=== PATIENT | male | born 1990 | race Caucasian/White ===

== ENCOUNTER 2018-07-04 06:21 | Emergency (ER) | payer SELFPAY ==
[~2018-07-04] VITALS: Ht 180.3 cm; Wt 147.4 kg
[2018-07-04] MEDS ORDERED: cefTRIAXone 1,000 MG/2.86 ml vial (IM ONLY) IM SCH (06:45)
[2018-07-04] MEDS ORDERED: KETOROLAC 60 MG/2 ML VIAL IM ONE (06:45)
[2018-07-04] MEDS ORDERED: LIDOCAINE 1% INJ 20 ML 20 ML VIAL INJ ONE (06:45)
--- NOTE | 2018-07-04 06:50 | ED EENT ---
History of Present Illness General Chief Complaint: Dental Problems/Pain Stated Complaint: ABCESS TOOTH,JAW PAIN, FACIAL PAIN Source: patient Exam Limitations: no limitations History of Present Illness Date Seen by Provider: Jul 04, 2018 Time Seen by Provider: 06:30 Initial Comments The patient is a 28-year-old male presenting with right-sided facial pain. He has several teeth that are bad and one on the right side that is decayed with a large hole in it. He has had worsening pain and swelling to the right side of his face over the last week. He has been trying omkr-wrz-pgijleu medicines but it has not been helping. He has a history of having pain and problems with this tooth. He owes money to the dental clinic so he has been waiting for his insurance to kick in, but it is still another month or 2 before that will happen. He has swelling and erythema to the right side of his face. He has a warm sensation to the right side of his face. He denies any drainage from the tooth. He has had subjective fever and chills but nothing documented. He has increased pain with palpation as well as trying to eat or drink anything. So far nothing has helped make it better. Timing/Duration: gradual Severity: severe Location: facial, dental Allergies and Home Medications Allergies Coded Allergies: [email or web address] (Verified Allergy, Severe, Swelling, 07/04/18) Uncoded Allergies: FLU SHOT (Allergy, Severe, 07/04/18) MUSHROOMS (Allergy, Severe, Swelling, 07/04/18) Home Medications Amoxicillin 500 Mg Tablet, 500 MG PO TID Prescribed by: STEPHAN CRAVEN on 07/04/18 0652 Hydrocodone/Acetaminophen 1 Each Tablet, 1 TAB PO Q6H PRN for severe pain Prescribed by: STEPHAN CRAVEN on 07/04/18 0652 Ibuprofen 800 Mg Tablet, 800 MG PO Q8H PRN for PAIN-MILD Prescribed by: STEPHAN CRAVEN on 07/04/18 0653 Patient Home Medication List Home Medication List Reviewed: Yes Review of Systems Review of Systems Constitutional: chills, fever (subjective) Eyes: Denies Blurred Vision Mouth: pain, swelling Throat: other (lymphadenopathy on the right side of his neck and throat) Respiratory: No cough Skin: change in color (redness to the right side of his face) Past Ocmykxt-Wkjmij-Utpfno Hx Patient Social History Recent Foreign Travel: No Contact w/Someone Who Travel: No Past Medical History Cardiac: Yes Hypertension Physical Exam Vital Signs Vital Signs - First Documented 07/04/18 06:32 Temp 97.9 Pulse 68 Resp 18 B/P (MAP) 190/91 (124) Pulse Ox 96 O2 Delivery Room Air Height, Weight, BMI Height: '" Weight: lbs. oz. kg; BMI Method: General Appearance: moderate distress Eyes: bilateral eye PERRL, bilateral eye EOMI Nose: normal inspection Mouth/Throat: dental tenderness (several cavities and fillings in teeth. Widespread dental decay) Neck: full range of motion, lymphadenopathy (R), lymphadenopathy (L) Cardiovascular: normal peripheral pulses, regular rate, rhythm Respiratory: chest non-tender, lungs clear, normal breath sounds, no respiratory distress Neurologic/Psychiatric: alert, oriented x 3 Progress/Results/Core Measures Results/Orders My Orders Orders - STEPHAN CRAVEN MD Ketorolac Injection (Toradol Injection) (07/04/18 06:45) Ceftriaxone For Im Use (Rocephin For Im (07/04/18 06:45) Lidocaine 1% Inj 20 Ml (Xylocaine 1% Inj (07/04/18 06:45) Vital Signs/I&O 07/04/18 06:32 Temp 97.9 Pulse 68 Resp 18 B/P (MAP) 190/91 (124) Pulse Ox 96 O2 Delivery Room Air Progress Progress Note : Time: 06:40 Progress Note Will treat with Rocephin IM shot as well as Toradol for pain. Started him on amoxicillin for antibiotic. Prescriptions for a few days of hydrocodone as well as ibuprofen. Encouraged to follow-up with the dentist as soon as possible for definitive care. Departure Impression Primary Impression: Dental abscess Additional Impressions: Pain due to dental caries Chronic hypertension Disposition: HOME, SELF-CARE Condition: Stable Departure-Patient Inst. Referrals: NO,LOCAL PHYSICIAN (PCP) Primary Care Physician Patient Instructions: Dental Pain (DC), Tooth Abscess (DC), Tooth Decay, Adult (DC) Add. Discharge Instructions: Follow up with your primary provider about your blood pressure. It should come down as your pain and infection from your tooth improves Check with clinic and dentist as soon as possible for definitive care of your teeth. All discharge instructions reviewed with patient and/or family. Voiced understanding. Scripts Ibuprofen (Ibuprofen) 800 Mg Tablet 800 MG PO Q8H PRN for PAIN-MILD for 10 Days, #30 TAB Prov: STEPHAN CRAVEN MD 07/04/18 Hydrocodone/Acetaminophen (Reyno 5-325 Tablet) 1 Each Tablet 1 TAB PO Q6H PRN for severe pain MDD 10 for 3 Days, #12 TAB 0 Refills Prov: STEPHAN CRAVEN MD 07/04/18 Amoxicillin (Amoxicillin) 500 Mg Tablet 500 MG PO TID for dental caries/infection for 10 Days, TAB Prov: STEPHAN CRAVEN MD 07/04/18 STEPHAN CRAVEN MD Jul 04, 2018 06:50
[2018-07-04] MEDS ORDERED: AMOX500T2 PO (06:52)
[2018-07-04] MEDS ORDERED: HYDR-4226 PO (06:52)
[2018-07-04] MEDS ORDERED: IBUP-1780 PO (06:53)
--- NOTE | 2018-07-04 07:00 | NUR ---
Report from Roberta COX.
[2018-07-04 07:05] VITALS: BP 190/99
--- NOTE | 2018-07-04 07:05 | NUR ---
Follow up recommended soon for elevated BP.
--- NOTE | 2018-07-04 07:05 | NUR ---
Pt was instructed to establish/follow up with PCP.
--- NOTE | 2018-07-04 07:05 | NUR ---
Pt discharged to home at this time. Pt verbalizes understanding of home instructions and rec'd 3 Rx's
--- OUTSIDE RECORDS SUMMARY | 2018-07-05 10:39 | XMS REPORT ---
Author Author LUIS SANTIAGO Organization [facility] Address [address] [place] [address] Care Team Providers Care Customer Liaison Name Role Phone LUIS SANTIAGO Unavailable PROBLEMS Type Condition ICD9-CM Code [id number] Code Onset Dates Condition Status SNOMED Code Problem Primary insomnia F51.01 Active 7992495 Problem Other chronic pain G89.29 Active 68975857 Problem Body mass index (BMI) of 40.0-44.9 in adult Z68.41 Active 399829502 Problem Essential hypertension I10 Active 18281748 Problem Dental caries K02.9 Active 93955700 Problem Hypertriglyceridemia E78.1 Active 096890602 Problem Low serum HDL R74.8 Active 416764266 Problem Bipolar affective disorder, current episode mixed, current episode severity unspecified F31.60 Active 312648636 Problem Generalized anxiety disorder F41.1 Active 39239057 Problem Methamphetamine use disorder, moderate, 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 Active 66290530 Problem Bipolar affective disorder, currently depressed, moderate F31.32 Active 512293188 ALLERGIES No Known Allergies ENCOUNTERS Encounter Location Date Diagnosis [facility] [id number] [place] [address] Jan, Essential hypertension I10 ; Primary insomnia F51.01 ; Generalized anxiety disorder F41.1 ; Bipolar affective disorder, current episode mixed, current episode severity unspecified F31.60 ; Diarrhea, unspecified type R19.7 ; Pain in left knee M25.562 ; Folliculitis L73.9 and Body mass index (BMI) of 40.0-44.9 in adult Z68.41 [facility] [id number] [address] Nov, [facility] [address] [facility] [id number] [address] Nov, Essential hypertension I10 ; Generalized anxiety disorder F41.1 ; BMI 40.0-44.9, adult Z68.41 ; Bipolar affective disorder, currently depressed, moderate F31.32 and Low serum HDL R74.8 [place] [id number] [place] [address] September, Essential hypertension I10 ; Primary insomnia F51.01 ; Hypertriglyceridemia E78.1 ; Bipolar affective disorder, currently depressed, moderate F31.32 ; Pain in left knee M25.562 ; Other chronic pain G89.29 ; Acute pain of left shoulder M25.512 ; Body mass index (BMI) of 40.0-44.9 in adult Z68.41 ; Morbid (severe) obesity due to excess calories E66.01 and Dental caries K02.[address] [address] September, Bipolar affective disorder, currently depressed, moderate F31.32 ; Methamphetamine use disorder, moderate, 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 and BMI 40.0-44.9, adult Z68.[address] [address] Aug, Bipolar affective disorder, current episode mixed, current episode severity unspecified F31.60 and Generalized anxiety disorder F41.[address] [address] Aug, Essential hypertension I10 ; Hypertriglyceridemia E78.1 ; Anxiety F41.9 and Screen for STD (sexually transmitted disease) Z11.[address] [address] Jan, Cellulitis of groin L03.[address] [address] September, [place] [address] [address] Aug, [address] [address] Aug, Dental examination Z01.20 [facility] [address] [place] [address] Jul, [place] [id number] [place] [address] Jul, Essential hypertension I10 ; Primary insomnia F51.01 and Hypertriglyceridemia E78.1 [place] [address] [address] May, [facility] [id number] [place] [phone] May, Dental examination Z01.20 [place] [address] [address] May, [facility] [id number] [place] [phone] May, Encounter for dental examination Z01.20 [place] [id number] [place] [address] May, Encounter for routine adult health examination with abnormal findings Z00.01 ; Body mass index (BMI) of 45.0-49.9 in adult Z68.42 ; Morbid (severe) obesity due to excess calories E66.01 ; High-risk sexual behavior Z72.51 ; Essential hypertension I10 ; Primary insomnia F51.01 ; Dental caries K02.9 ; Decreased hearing of right ear H91.91 and Tonsillar hypertrophy J35.1 IMMUNIZATIONS No Known Immunizations SOCIAL HISTORY Never Assessed REASON FOR VISIT Hypertension Pt in for fu on HTN and knee pain, states his knee is still bothering him despite the knee injection HAIR Maldonado PLAN OF CARE Activity Details Follow Up 3 Months, prn Reason:CHM/HTN VITAL SIGNS Height 71 in 2018-01-08 Weight 316.5 lbs 2018-01-08 Temperature 98.2 degrees Fahrenheit 2018-01-08 Heart Rate 80 bpm 2018-01-08 Respiratory Rate 20 2018-01-08 BMI 44.14 kg/m2 2018-01-08 Blood pressure systolic 126 mmHg 2018-01-08 Blood pressure diastolic 64 mmHg 2018-01-08 MEDICATIONS Medication Instructions Dosage Frequency Start Date End Date Duration Status Pravastatin Sodium 20 mg Orally Once a day at hs 1 tablet May, Active Restoril 15 mg Orally Once a day 1 capsule at bedtime as needed 24h Jan 28 days Active Bactrim DS 800-160 MG Orally Twice a day 1 tablet 12h Jan,Jan 10 day(s) Active ibuprofen 1 tab Active Tegretol 200 mg Orally Twice a day 1 tablet 12September, Active Zestoretic 20-25 MG Orally Once a day 1 tablet 24h Jul, Active tylenol Active HydrOXYzine HCl 50 mg Orally every 8 hrs PRN 1 tablet three times per day Nov, 30 days Active RESULTS No Results PROCEDURES No Known procedures INSTRUCTIONS MEDICATIONS ADMINISTERED No Known Medications MEDICAL (GENERAL) HISTORY Type Description Date Medical History Hypertension Medical History Panic Attacks (Hx) Medical History Bipolar (unmedicated) Medical History Asthma Medical History hypercholesterolemia Medical History Tonsillar hypertrophy Medical History Inner ear dysfunction, bilateral Medical History Conductive hearing loss of both ears Surgical History Benign Tumor removed from bottom of abdomen Hospitalization History Bad reaction to flu vaccine- states had spells of blacking out and spent 6 days in the hospital 2008 Hospitalization History Mental hospital stays x2 2008, 2012
--- OUTSIDE RECORDS SUMMARY | 2018-07-05 10:39 | XMS REPORT ---
Author Author CAPO LILLY [facility] Address [address] [place] [address] Care Team Providers Care Engineer Technician Name Role Phone CAPO LILLY Unavailable PROBLEMS Type Condition ICD9-CM Code CYR26-CO Code Onset Dates Condition Status SNOMED Code Problem Primary insomnia F51.01 Active 0469962 Problem Other chronic pain G89.29 Active 52678904 Problem Body mass index (BMI) of 40.0-44.9 in adult Z68.41 Active 077061991 Problem Essential hypertension I10 Active 69995482 Problem Dental caries K02.9 Active 94150457 Problem Hypertriglyceridemia E78.1 Active 296640260 Problem Low serum HDL R74.8 Active 615877881 Problem Bipolar affective disorder, current episode mixed, current episode severity unspecified F31.60 Active 908666318 Problem Generalized anxiety disorder F41.1 Active 14798655 Problem Methamphetamine use disorder, moderate, 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 Active 34753208 Problem Bipolar affective disorder, currently depressed, moderate F31.32 Active 075704807 ALLERGIES No Known Allergies ENCOUNTERS Encounter Location Date Diagnosis [place] [address] [place] [address] Feb, [facility] [place] [id number] [place] [address] Feb, Acute nasopharyngitis (common cold) J00 ; Bronchiolitis J21.9 ; Non-intractable vomiting with nausea, unspecified vomiting type R11.2 and BMI 40.0-44.9, adult Z68.41 [facility] [place] [address] [place] [address] Jan, Essential hypertension I10 ; Primary insomnia F51.01 ; Generalized anxiety disorder F41.1 ; Bipolar affective disorder, current episode mixed, current episode severity unspecified F31.60 ; Diarrhea, unspecified type R19.7 ; Pain in left knee M25.562 ; Folliculitis L73.9 and Body mass index (BMI) of 40.0-44.9 in adult Z68.41 [place] [address] [address] Nov, [place] [id number] [place] [address] Nov, Essential hypertension I10 ; Generalized anxiety disorder F41.1 ; BMI 40.0-44.9, adult Z68.41 ; Bipolar affective disorder, currently depressed, moderate F31.32 and Low serum HDL R74.8 [place] [id number] [place] [address] September, Essential hypertension I10 ; Primary insomnia F51.01 ; Hypertriglyceridemia E78.1 ; Bipolar affective disorder, currently depressed, moderate F31.32 ; Pain in left knee M25.562 ; Other chronic pain G89.29 ; Acute pain of left shoulder M25.512 ; Body mass index (BMI) of 40.0-44.9 in adult Z68.41 ; Morbid (severe) obesity due to excess calories E66.01 and Dental caries K02.9 [place] [id number] [place] [address] September, Bipolar affective disorder, currently depressed, moderate F31.32 ; Methamphetamine use disorder, moderate, 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 and BMI 40.0-44.9, adult Z68.[address] [place] [address] Aug, Bipolar affective disorder, current episode mixed, current episode severity unspecified F31.60 and Generalized anxiety disorder F41.1 [place] [address] [id number] [place] [address] Aug, Essential hypertension I10 ; Hypertriglyceridemia E78.1 ; Anxiety F41.9 and Screen for STD (sexually transmitted disease) Z11.[address] [place], [place] [address] 07 Jan, 2017 Cellulitis of groin L03.314 [place] [id number] [place] [phone] September, [facility] [place] [id number] [place] [id number] Aug, [place] [id number] [place] [address] Aug, Dental examination Z01.20 [place] [id number] [place] [address] Jul, [place] [id number] [place] [phone] Jul, Essential hypertension I10 ; Primary insomnia F51.01 and Hypertriglyceridemia E78.1 [place] [id number] [place] [address] May, [facility] [id number] [place] [phone] May, Dental examination Z01.20 [place] [id number] [place] [phone] May, [facility] [id number] [place] [phone] May, Encounter for dental examination Z01.20 [place] [address] [place] [phone] May, Encounter for routine adult health examination [...] SOCIAL HISTORY Never Assessed REASON FOR VISIT Cough/Congestion slowly getting worse. Tried OTC medicene and not helping Starla ARNDT, Was sick last week with vomitting/diarreha and since then can't eat anything without vomitting Starla ARNDT, Would like to see about increasing antideppresant dealing w/ a in family.Starla ARNDT, Sleeping medicene never got sent to [facility] in [place] would like it still Starla ARNDT PLAN OF CARE Activity Details Follow Up 03/03 w/ Chaitanya Lilly Reason:establish care VITAL SIGNS Height 71 in 2018-02-11 Weight 312.2 lbs 2018-02-11 Temperature 98.2 degrees Fahrenheit 2018-02-11 Heart Rate 70 bpm 2018-02-11 Respiratory Rate 20 2018-02-11 Oximetry on room air:96 % 2018-02-11 BMI 43.54 kg/m2 2018-02-11 Blood pressure systolic 122 mmHg 2018-02-11 Blood pressure diastolic 88 mmHg 2018-02-11 MEDICATIONS Medication Instructions Dosage Frequency Start Date End Date Duration Status Pravastatin Sodium 20 mg Orally Once a day at hs 1 tablet May, Active HydrOXYzine HCl 50 mg Orally every 8 hrs PRN 1 tablet three times per day Nov, 30 days Active Zestoretic 20-25 MG Orally Once a day 1 tablet 24h Jul, Active PredniSONE 20 mg Orally Once a day 2 tablets 24h Feb, Feb, 5 days Active Tegretol 200 mg Orally Twice a day 1 tablet 12h September, Active Restoril 15 mg Orally Once a day 1 capsule at bedtime as needed 24h Jan 28 days Active tylenol Active ibuprofen 1 tab Active Ondansetron HCl 8 MG Orally Twice a day 1 tablet 12h Feb, 5 days Active RESULTS No Results PROCEDURES No [...] History Mental hospital stays x2 2008, 2012 Hospitalization History Rahel Hernadez 2017
--- OUTSIDE RECORDS SUMMARY | 2018-07-05 10:39 | XMS REPORT ---
Author Author LUIS Ko Organization [facility] Address [address] [place] [address] Care Team Providers Care Hospital Housekeeper Name Role Phone LUIS Ko Unavailable PROBLEMS Type Condition ICD9-CM Code TZH94-GK Code Onset Dates Condition Status SNOMED Code Problem Primary insomnia F51.01 Active 8092806 Problem Other chronic pain G89.29 Active 10594376 Problem Body mass index (BMI) of 40.0-44.9 in adult Z68.41 Active 530230163 Problem Essential hypertension I10 Active 91720781 Problem Dental caries K02.9 Active 97805114 Problem Hypertriglyceridemia E78.1 Active 589228195 Problem Low serum HDL R74.8 Active 925455459 Problem Bipolar affective disorder, current episode mixed, current episode severity unspecified F31.60 Active 261025921 Problem Generalized anxiety disorder F41.1 Active 28676488 Problem Methamphetamine use disorder, moderate, 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 Active 15141203 Problem Bipolar affective disorder, currently depressed, moderate F31.32 Active 688586197 ALLERGIES No Information ENCOUNTERS Encounter Location Date Diagnosis [facility] [id number] [place] [address] Feb, Acute nasopharyngitis (common cold) J00 ; Bronchiolitis J21.9 ; Non-intractable vomiting with nausea, unspecified vomiting type R11.2 and BMI 40.0-44.9, adult Z68.41 [facility] [id number] [place] [address] 06 Jan, 2018 Essential hypertension I10 ; Primary insomnia F51.01 ; Generalized anxiety disorder F41.1 ; Bipolar affective disorder, current episode mixed, current episode severity unspecified F31.60 ; Diarrhea, unspecified type R19.7 ; Pain in left knee M25.562 ; Folliculitis L73.9 and Body mass index (BMI) of 40.0-44.9 in adult Z68.41 [place] [address] [address] Nov, [place] [address] [place] [address] Nov, Essential hypertension I10 ; Generalized anxiety disorder F41.1 ; BMI 40.0-44.9, adult Z68.41 ; Bipolar affective disorder, currently depressed, moderate F31.32 and Low serum HDL R74.8 [place] [address] [place] [address] September, Essential hypertension I10 ; Primary insomnia F51.01 ; Hypertriglyceridemia E78.1 ; Bipolar affective disorder, currently depressed, moderate F31.32 ; Pain in left knee M25.562 ; Other chronic pain G89.29 ; Acute pain of left shoulder M25.512 ; Body mass index (BMI) of 40.0-44.9 in adult Z68.41 ; Morbid (severe) obesity due to excess calories E66.01 and Dental caries K02.9 [place] [address] [place] [address]- [address] September, Bipolar affective disorder, currently depressed, moderate F31.32 ; Methamphetamine use disorder, moderate, 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 and BMI 40.0-44.9, adult Z68.41 [place] [address] [place] [address] 729[address]- [address] Aug, Bipolar affective disorder, current episode mixed, current episode severity unspecified F31.60 and Generalized anxiety disorder F41.1 [place] [id number] [place] [address]- [address] Aug, Essential hypertension I10 ; Hypertriglyceridemia E78.1 ; Anxiety F41.9 and Screen for STD (sexually transmitted disease) Z11.3 [place] [address] [place] [address]- [address] 07 Jan, 2017 Cellulitis of groin L03.314 [place] [address] [address] September, [facility] [id number] [place] [address] Aug, [facility] [id number] [place] [address] 8[address]- [address]73 Aug, Dental examination Z01.20 [facility] [id number] [place] [address] 34[address]- [address] Jul, [facility] [id number] [place] [address] 71351- 1360 Jul, Essential hypertension I10 ; Primary insomnia F51.01 and Hypertriglyceridemia E78.1 [place] [id number] [place] [address] 39[address] May, [facility] [id number] [place] [phone] May, Dental examination Z01.20 [facility] [id number] [place] [address] 66345[address] May, [facility] [id number] [place] [address] [phone] May, Encounter for dental examination Z01.20 [place] [id number] [place] [address]- [address] May, Encounter for routine adult health examination [...] SOCIAL HISTORY Never Assessed REASON FOR VISIT Decreased Hearing - Left ear PLAN OF CARE VITAL SIGNS MEDICATIONS No Known Medications RESULTS No Results PROCEDURES No Known procedures [...] x2 2008, 2012 Hospitalization History Rahel Hernadez 2018
--- OUTSIDE RECORDS SUMMARY | 2018-07-05 10:40 | XMS REPORT ---
Author Author LUIS SANTIAGO Organization [facility] [place] Address [address] [place] [address] Care Team Providers Care Holder Pile Driving Name Role Phone SANTIAGOLUIS Kirkpatrick Unavailable PROBLEMS Type Condition ICD9-CM Code WZL32-SS Code Onset Dates Condition Status SNOMED Code Problem Essential hypertension I10 Active 44043259 Problem Body mass index (BMI) of 40.0-44.9 in adult Z68.41 Active 104544374 Problem Dental caries K02.9 Active 70654190 Problem Primary insomnia F51.01 Active 4567844 Problem Low serum HDL R74.8 Active 853217005 Problem Methamphetamine use disorder, moderate, 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 Active 69256670 Problem Bipolar affective disorder, current episode mixed, current episode severity unspecified F31.60 Active 199869945 Problem Other chronic pain G89.29 Active 53083505 Problem Bipolar affective disorder, currently depressed, moderate F31.32 Active 034425731 Problem Generalized anxiety disorder F41.1 Active 90306730 ALLERGIES No Known Allergies ENCOUNTERS Encounter Location Date Diagnosis [facility] [place] [id number] [address] Jan, [facility] [place] [id number] [place] [address] Nov, [facility] [place] [id number] [place] [address] Nov, Essential hypertension I10 ; Generalized anxiety disorder F41.1 ; BMI 40.0-44.9, adult Z68.41 ; Bipolar affective disorder, currently depressed, moderate F31.32 and Low serum HDL R74.8 [facility] [place] [id number] [address] September, Essential hypertension I10 ; Primary insomnia F51.01 ; Hypertriglyceridemia E78.1 ; Bipolar affective disorder, currently depressed, moderate F31.32 ; Pain in left knee M25.562 ; Other chronic pain G89.29 ; Acute pain of left shoulder M25.512 ; Body mass index (BMI) of 40.0-44.9 in adult Z68.41 ; Morbid (severe) obesity due to excess calories E66.01 and Dental caries K02.9 [place] [address] [address] September, Bipolar affective disorder, currently depressed, moderate F31.32 ; Methamphetamine use disorder, moderate, 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 and BMI 40.0-44.9, adult Z68.41 [place] [address] [address] 24 Aug, 2017 Bipolar affective disorder, current episode mixed, current episode severity unspecified F31.60 and Generalized anxiety disorder F41.1 [place] [address] [address] Aug, Essential hypertension I10 ; Hypertriglyceridemia E78.1 ; Anxiety F41.9 and Screen for STD (sexually transmitted disease) Z11.3 [place] [address] [address] 07 Jan, 2017 Cellulitis of groin L03.314 [place] [address] [address] September, [place] [address] [address] Aug, [place] [address] [address] Aug, Dental examination Z01.20 [place] [address] [address] Jul, [place] [address] [address] Jul, Essential hypertension I10 ; Primary insomnia F51.01 and Hypertriglyceridemia E78.1 [facility] [place] [address] [facility] [id number] [address] May, [facility] [id number] [id number] May, Dental examination Z01.20 [facility] [place] [address] [address] May, [facility] [id number] [id number] May, Encounter for dental examination Z01.20 [facility] [place] [id number] [address] May, Encounter for routine adult health examination [...] SOCIAL HISTORY Never Assessed REASON FOR VISIT [id number], -Having right ankle pain that radiates up right calf for few weeks, -Requesting HIV test PLAN OF CARE Activity Details Follow Up 3 Months, prn Reason:CHM/HTN VITAL SIGNS Height 71 in 2017-08-08 Weight 294.1 lbs 2017-08-08 Temperature 98.6 degrees Fahrenheit 2017-08-08 Heart Rate 90 bpm 2017-08-08 Respiratory Rate 20 2017-08-08 BMI 41.01 kg/m2 2017-08-08 Blood pressure systolic 164 mmHg 2017-08-08 Blood pressure diastolic 90 mmHg 2017-08-08 MEDICATIONS Medication Instructions Dosage Frequency Start Date End Date Duration Status Clonidine HCl 0.1 MG Orally twice a day 1 tablet 12h Aug, 30 day(s) Active Zestoretic 20-25 MG Orally Once a day 1 tablet 24h Jul, 90 days Active tylenol Active Pravastatin Sodium 20 mg Orally Once a day at hs 1 tablet May, 90 days Not-Taking RESULTS No Results PROCEDURES Procedure Date Ordered Result Body Site COMPLETE CBC W/AUTO DIFF WBC August 08, 2017 COMPREHEN METABOLIC PANEL August 08, 2017 LIPID PANEL August 08, 2017 ASSAY THYROID STIM HORMONE August 08, 2017 VENIPUNCT, ROUTINE* August 08, 2017 No Charge August 08, 2017 INSTRUCTIONS MEDICATIONS ADMINISTERED No Known Medications MEDICAL [...]
--- OUTSIDE RECORDS SUMMARY | 2018-07-05 10:40 | XMS REPORT ---
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 Active 59912168 Problem Bipolar affective disorder, current episode mixed, current episode severity unspecified F31.60 Active 745673922 Problem Other chronic pain G89.29 Active 80074262 Problem Bipolar affective disorder, currently depressed, moderate F31.32 Active 501918706 Problem Generalized anxiety disorder F41.1 Active 40441847 ALLERGIES No Information ENCOUNTERS Encounter Location Date Diagnosis [place] [id number] [address] Jan, [facility] [address] [address] Nov, [facility] [address] [place] [address] Nov, Essential hypertension I10 ; Generalized anxiety disorder F41.1 ; BMI 40.0-44.9, adult Z68.41 ; Bipolar affective disorder, currently depressed, moderate F31.32 and Low serum HDL R74.8 [place] [id number] [address] September, Essential hypertension I10 ; Primary insomnia F51.01 ; Hypertriglyceridemia E78.1 ; Bipolar affective disorder, currently depressed, moderate F31.32 ; Pain in left knee M25.562 ; Other chronic pain G89.29 ; Acute pain of left shoulder M25.512 ; Body mass index (BMI) of 40.0-44.9 in adult Z68.41 ; Morbid (severe) obesity due to excess calories E66.01 and Dental caries K02.[address] [address] September, Bipolar affective disorder, currently depressed, moderate F31.32 ; Methamphetamine use disorder, moderate, 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 and BMI 40.0-44.9, adult Z68.[address] [address] 24 Aug, 2017 Bipolar affective disorder, current episode mixed, current episode severity unspecified F31.60 and Generalized anxiety disorder F41.[address] [address] Aug, Essential hypertension I10 ; Hypertriglyceridemia E78.1 ; Anxiety F41.9 and Screen for STD (sexually transmitted disease) Z11.3 [place] [address] [address] 07 Jan, 2017 Cellulitis of groin L03.314 [place] [address] [address] September, [place] [address] [address] Aug, [place] [address] [address] Aug, Dental examination Z01.[address] [address] Jul, [place] [address] [address] Jul, Essential hypertension I10 ; Primary insomnia F51.01 and Hypertriglyceridemia E78.1 [facility] [address] [facility] [id number] [address] May, [facility] [address] [id number] May, Dental examination Z01.20 [facility] [id number] [address] May, [facility] [id number] [id number] May, Encounter for dental examination Z01.20 [facility] [address] [address] May, Encounter for routine adult health examination [...] SOCIAL HISTORY Never Assessed REASON FOR VISIT intake PLAN OF CARE Activity Details Follow Up prn Reason: F/U VITAL SIGNS MEDICATIONS Medication Instructions Dosage Frequency Start Date End Date Duration Status Clonidine HCl 0.1 MG Orally twice a day 1 tablet 12h Aug, 30 day(s) Active tylenol Active Zestoretic 20-25 MG Orally Once a day 1 tablet 24h Jul, 90 days Active Pravastatin Sodium 20 mg Orally Once a day at hs 1 tablet May, 90 days Active RESULTS No Results PROCEDURES Procedure Date Ordered Result Body Site Psych diagnostic evaluation, established patient August 26, 2017 INSTRUCTIONS MEDICATIONS ADMINISTERED No Known Medications [...]
--- OUTSIDE RECORDS SUMMARY | 2018-07-05 10:40 | XMS REPORT ---
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 Active 01516184 Problem Bipolar affective disorder, current episode mixed, current episode severity unspecified F31.60 Active 228010309 Problem Other chronic pain G89.29 Active 63959115 Problem Bipolar affective disorder, currently depressed, moderate F31.32 Active 723963689 Problem Generalized anxiety disorder F41.1 Active 45148847 ALLERGIES No Known Allergies ENCOUNTERS Encounter Location Date Diagnosis [facility] [id number] [address] Jan, [facility] [address] [place] [address] Nov, [facility] [address] [place] [address] Nov, Essential hypertension I10 ; Generalized anxiety disorder F41.1 ; BMI 40.0-44.9, adult Z68.41 ; Bipolar affective disorder, currently depressed, moderate F31.32 and Low serum HDL R74.8 [facility] [id number] [address] September, Essential hypertension I10 ; Primary insomnia F51.01 ; Hypertriglyceridemia E78.1 ; Bipolar affective disorder, currently depressed, moderate F31.32 ; Pain in left knee M25.562 ; Other chronic pain G89.29 ; Acute pain of left shoulder M25.512 ; Body mass index (BMI) of 40.0-44.9 in adult Z68.41 ; Morbid (severe) obesity due to excess calories E66.01 and Dental caries K02.9 [place] [address] [address] September, Bipolar affective disorder, currently depressed, moderate F31.32 ; Methamphetamine use disorder, moderate, 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 and BMI 40.0-44.9, adult Z68.41 [place] [address] [address] 24 Aug, 2017 Bipolar affective disorder, current episode mixed, current episode severity unspecified F31.60 and Generalized anxiety disorder F41.1 [place] [address] [address] Aug, Essential hypertension I10 ; Hypertriglyceridemia E78.1 ; Anxiety F41.9 and Screen for STD (sexually transmitted disease) Z11.3 [place] [address] [address] 07 Jan, 2017 Cellulitis of groin L03.314 [place] [address] [address] September, [place] [address] [address] Aug, [place] [address] [address] Aug, Dental examination Z01.20 [place] [address] [address] Jul, [place] [address] [address] Jul, Essential hypertension I10 ; Primary insomnia F51.01 and Hypertriglyceridemia E78.1 [facility] [address] [facility] [id number] [address] May, [facility] [id number] [id number] May, Dental examination Z01.20 [facility] [address] [address] May, [facility] [id number] [id number] May, Encounter for dental examination Z01.20 [facility] [id number] [address] May, Encounter for routine adult health examination [...] SOCIAL HISTORY Never Assessed REASON FOR VISIT Blood pressure-Ronald Pt wanted to talk about something to help him sleep and help with pain in his shoulder and knee PLAN OF CARE Activity Details Follow Up 3 Months, prn Reason:CHM/HTN Future/Pending Procedure JOINT INJECTION-LARGE JOINT VITAL SIGNS Height 71 in 2017-09-25 Weight 297.3 lbs 2017-09-25 Temperature 98.4 degrees Fahrenheit 2017-09-25 Heart Rate 80 bpm 2017-09-25 Respiratory Rate 20 2017-09-25 BMI 41.46 kg/m2 2017-09-25 Blood pressure systolic 120 mmHg 2017-09-25 Blood pressure diastolic 74 mmHg 2017-09-25 MEDICATIONS Medication Instructions Dosage Frequency Start Date End Date Duration Status Clonidine HCl 0.2 MG Orally Twice a day 1 tablet 12h Aug, 90 days Active Zestoretic 20-25 MG Orally Once a day 1 tablet 24h Jul, 90 days Active tylenol Active Pravastatin Sodium 20 mg Orally Once a day at hs 1 tablet May, 90 days Active Eszopiclone 2 MG Orally Once a day 1 tablet immediately before bedtime 24h September, 30 days Active Tegretol 200 mg Orally Twice a day 1 tablet 12h September, 90 days Active RESULTS No Results PROCEDURES Procedure Date Ordered Result Body Site DRAIN/INJECT, JOINT/BURSA September 25, 2017 INSTRUCTIONS MEDICATIONS ADMINISTERED No Known Medications [...]
--- OUTSIDE RECORDS SUMMARY | 2018-07-05 10:40 | XMS REPORT ---
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 Active 440908314 Problem Conductive hearing loss of both ears H90.0 Active 371369517 Problem Primary insomnia F51.01 Active 8663730 Problem Hypertriglyceridemia E78.1 Active 684203113 Problem Dental caries K02.9 Active 09563327 Problem Decreased hearing of right ear H91.91 Active 591288414 Problem Encounter for routine adult health examination with abnormal findings Z00.01 Active 483207891 Problem Essential hypertension I10 Active 95946206 Problem Tonsillar hypertrophy J35.1 Active 30525242 ALLERGIES No Known Allergies SOCIAL HISTORY Never Assessed PLAN OF CARE Activity Details Follow Up prn Reason:MARLENY VITAL SIGNS MEDICATIONS Medication Instructions Dosage Frequency Start Date End Date Duration Status Lisinopril-Hydrochlorothiazide 10-12.5 MG Orally Once a day 1 tablet 24h May, 90 days Active Lunesta 2 MG Orally Once a day 1 tablet immediately before bedtime 24h May, 30 days Active Hydrochlorothiazide 25 MG Orally Once a day 1 tablet 24h Active RESULTS No Results PROCEDURES Procedure Date Ordered Result Body Site INTRAORL-PERIAPICAL 1 FILM 94002 May 23, 2016 INTRAORL-PERIAPICAL EA ADD FILM May 23, 2016 INTRAORL-PERIAPICAL EA ADD FILM May 23, 2016 INTRAORL-PERIAPICAL EA ADD FILM May 23, 2016 PANORAMIC FILM SEE ALSO CODE 04123 May 23, 2016 BITEWINGS - FOUR FILMS May 23, 2016 IMMUNIZATIONS No Known Immunizations MEDICAL (GENERAL) HISTORY Type Description Date Medical History Hypertension Medical History Panic Attacks (Hx) Medical History Bipolar (unmedicated) Medical History Asthma Surgical History Benign Tumor removed from bottom of abdomen Hospitalization History Bad reaction to flu vaccine- states had spells of blacking out and spent 6 days in the hospital 2008 Hospitalization History Mental hospital stays x2
--- OUTSIDE RECORDS SUMMARY | 2018-07-05 10:40 | XMS REPORT ---
Author Author KRISTY MONTEMAYOR Organization [facility] Address [address] [place] [address] Care Team Providers Care Inside Account Representative Name Role Phone ALBINA KRISTY Unavailable PROBLEMS Type Condition ICD9-CM Code CLA46-ZZ Code Onset Dates Condition Status SNOMED Code Problem Essential hypertension I10 Active 15789603 Problem Body mass index (BMI) of 40.0-44.9 in adult Z68.41 Active 769747592 Problem Dental caries K02.9 Active 74816516 Problem Primary insomnia F51.01 Active 0449779 Problem Low serum HDL R74.8 Active 422725913 Problem Methamphetamine use disorder, moderate, 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 Active 42140392 Problem Bipolar affective disorder, current episode mixed, current episode severity unspecified F31.60 Active 084536577 Problem Other chronic pain G89.29 Active 03777823 Problem Bipolar affective disorder, currently depressed, moderate F31.32 Active 728848747 Problem Generalized anxiety disorder F41.1 Active 83129270 ALLERGIES No Known Allergies ENCOUNTERS Encounter Location Date Diagnosis [facility] [id number] [address] Jan, [facility] [address] [place] [address] Nov, [facility] [address] [place] [address] Nov, Essential hypertension I10 ; Generalized anxiety disorder F41.1 ; BMI 40.0-44.9, adult Z68.41 ; Bipolar affective disorder, currently depressed, moderate F31.32 and Low serum HDL R74.8 [facility] [id number], [place] [address] September, Essential hypertension I10 ; Primary insomnia F51.01 ; Hypertriglyceridemia E78.1 ; Bipolar affective disorder, currently depressed, moderate F31.32 ; Pain in left knee M25.562 ; Other chronic pain G89.29 ; Acute pain of left shoulder M25.512 ; Body mass index (BMI) of 40.0-44.9 in adult Z68.41 ; Morbid (severe) obesity due to excess calories E66.01 and Dental caries K02.[address] [address] September, Bipolar affective disorder, currently depressed, moderate F31.32 ; Methamphetamine use disorder, moderate, 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 and BMI 40.0-44.9, adult Z68.[address] [address] 24 Aug, 2017 Bipolar affective disorder, current episode mixed, current episode severity unspecified F31.60 and Generalized anxiety disorder F41.[address] [address] Aug, Essential hypertension I10 ; Hypertriglyceridemia E78.1 ; Anxiety F41.9 and Screen for STD (sexually transmitted disease) Z11.3 [place] [address] [address] 07 Jan, 2017 Cellulitis of groin L03.314 [place] [address] [address] September, [place] [address] [address] Aug, [place] [address] [address] Aug, Dental examination Z01.[address] [address] Jul, [place] [address] [address] Jul, Essential hypertension I10 ; Primary insomnia F51.01 and Hypertriglyceridemia E78.1 [facility] [address] [facility] [id number] [address] May, [facility] [id number] [id number] May, Dental examination Z01.20 [facility] [id number] [address] May, [facility] [id number] [id number] May, Encounter for dental examination Z01.20 [facility] [id number] [address] May, Encounter for routine adult health examination [...] SOCIAL HISTORY Never Assessed REASON FOR VISIT BH intake WB-MA PLAN OF CARE Activity Details Follow Up 4 Weeks, prn Reason: VITAL SIGNS Height 71 in 2017-09-10 Weight 298.6 lbs 2017-09-10 Temperature 96.2 degrees Fahrenheit 2017-09-10 Heart Rate 72 bpm 2017-09-10 Respiratory Rate 20 2017-09-10 BMI 41.64 kg/m2 2017-09-10 Blood pressure systolic 142 mmHg 2017-09-10 Blood pressure diastolic 86 mmHg 2017-09-10 MEDICATIONS Medication Instructions Dosage Frequency Start Date End Date Duration Status Tegretol 200 MG Orally Twice a day 1 tablet 12h September, 30 day(s) Active Zestoretic 20-25 MG Orally Once a day 1 tablet 24h Jul, 90 days Active tylenol Active Pravastatin Sodium 20 mg Orally Once a day at hs 1 tablet May, 90 days Active Clonidine HCl 0.2 MG Orally Twice a day 1 tablet 12h Aug, Active RESULTS No Results PROCEDURES No Known [...]
--- OUTSIDE RECORDS SUMMARY | 2018-07-05 10:40 | XMS REPORT ---
Author Author LUIS SANTIAGO Organization [facility] Address [address] [place] [address] Care Team Providers Care Supervisor Cell Efficiency Name Role Phone SANTIAGOLUIS Kirkpatrick Unavailable PROBLEMS Type Condition ICD9-CM Code [id number] Code Onset Dates Condition Status SNOMED Code Problem Essential hypertension I10 Active 45882895 Problem Body mass index (BMI) of 40.0-44.9 in adult Z68.41 Active 958756350 Problem Dental caries K02.9 Active 94069175 Problem Primary insomnia F51.01 Active 5820788 Problem Low serum HDL R74.8 Active 930539491 Problem Methamphetamine use disorder, moderate, 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 Active 07527219 Problem Bipolar affective disorder, current episode mixed, current episode severity unspecified F31.60 Active 761614918 Problem Other chronic pain G89.29 Active 42066977 Problem Bipolar affective disorder, currently depressed, moderate F31.32 Active 852484330 Problem Generalized anxiety disorder F41.1 Active 50271907 ALLERGIES No Information ENCOUNTERS Encounter Location Date Diagnosis [facility] [id number] [address] Jan, [facility] [address] [place] [address] Nov, [facility] [address] [place] [address] Nov, Essential hypertension I10 ; Generalized anxiety disorder F41.1 ; BMI 40.0-44.9, adult Z68.41 ; Bipolar affective disorder, currently depressed, moderate F31.32 and Low serum HDL R74.8 [place] [id number] [address] September, Essential hypertension I10 ; Primary insomnia F51.01 ; Hypertriglyceridemia E78.1 ; Bipolar affective disorder, currently depressed, moderate F31.32 ; Pain in left knee M25.562 ; Other chronic pain G89.29 ; Acute pain of left shoulder M25.512 ; Body mass index (BMI) of 40.0-44.9 in adult Z68.41 ; Morbid (severe) obesity due to excess calories E66.01 and Dental caries K02.9 [place] [address] [address] September, Bipolar affective disorder, currently depressed, moderate F31.32 ; Methamphetamine use disorder, moderate, 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 and BMI 40.0-44.9, adult Z68.41 [place] [address] [address] 24 Aug, 2017 Bipolar affective disorder, current episode mixed, current episode severity unspecified F31.60 and Generalized anxiety disorder F41.1 [place] [address] [address] Aug, Essential hypertension I10 ; Hypertriglyceridemia E78.1 ; Anxiety F41.9 and Screen for STD (sexually transmitted disease) Z11.3 [place] [address] [address] 07 Jan, 2017 Cellulitis of groin L03.314 [place] [address] [address] September, [place] [address] [address] Aug, [place] [address] [address] Aug, Dental examination Z01.20 [place] [address] [address] Jul, [place] [address] [address] Jul, Essential hypertension I10 ; Primary insomnia F51.01 and Hypertriglyceridemia E78.1 [facility] [address] [facility] [id number] [address] May, [facility] [address] [facility] [id number] [address] May, Dental examination Z01.20 [facility] [address] [facility] [id number] [address] May, [facility] [address] [facility] [id number] [id number] May, Encounter for dental examination Z01.20 [facility] [address] [facility] [id number] [address] May, Encounter for routine adult health examination [...] SOCIAL HISTORY Never Assessed REASON FOR VISIT doctor's note PLAN OF CARE VITAL SIGNS MEDICATIONS Unknown Medications RESULTS No Results PROCEDURES No Known [...]
--- OUTSIDE RECORDS SUMMARY | 2018-07-05 10:40 | XMS REPORT ---
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 Unknown Non Drug Allergy May, Unknown SOCIAL HISTORY No smoking Hx information available PLAN OF CARE Activity Details Follow Up prn Reason:extractions VITAL SIGNS MEDICATIONS Medication Instructions Dosage Frequency Start Date End Date Duration Status Pravastatin Sodium 20 mg Orally Once a day at hs 1 tablet May, Active Hydrochlorothiazide 25 MG Orally Once a day 1 tablet 24h Active Lisinopril-Hydrochlorothiazide 10-12.5 MG Orally Once a day 1 tablet 24h May, 90 days Active Lunesta 2 MG Orally Once a day 1 tablet immediately before bedtime 24h May, 30 days Active RESULTS No Results PROCEDURES Procedure Date Ordered Related Diagnosis Body Site COMP ORAL EVALUATION - NEW/EST PT May 27, 2016 IMMUNIZATIONS No Known Immunizations
--- OUTSIDE RECORDS SUMMARY | 2018-07-05 10:40 | XMS REPORT ---
Author Author MARTHA YT [facility] Address [address] [place] [address] Care Team Providers Care Taxation Agent Name Role Phone MARTHAANNA SANTAMARIAHANY Unavailable PROBLEMS Type Condition ICD9-CM Code DZG35-EI Code Onset Dates Condition Status SNOMED Code Problem Tonsillar hypertrophy J35.1 Active 58666657 Problem Dental caries K02.9 Active 74439027 Problem Essential hypertension I10 Active 59050983 Problem Generalized anxiety disorder F41.1 Active 24406112 Problem Bipolar affective disorder, current episode mixed, current episode severity unspecified F31.60 Active 558868511 Problem Morbid (severe) obesity due to excess calories E66.01 Active 040823083 Problem Primary insomnia F51.01 Active 0381300 Problem Anxiety F41.9 Active 73841517 Problem Hypertriglyceridemia E78.1 Active 554074753 Problem High-risk sexual behavior Z72.51 Active 735656560 Problem Body mass index (BMI) of 45.0-49.9 in adult Z68.42 Active 897365510 Problem Inner ear dysfunction, 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 Active 599322833 Problem Encounter for routine adult health examination with abnormal findings Z00.01 Active 098212591 Problem Conductive hearing loss of both ears H90.0 Active 210149063 Problem Decreased hearing of right ear H91.91 Active 700238917 ALLERGIES No Known Allergies ENCOUNTERS Encounter Location Date Diagnosis [facility] [address] [facility] [id number] [address] September, [facility] [id number], [place] [address] September, [facility] [address] [facility] [id number], [place] [address] Aug, Bipolar affective disorder, current episode mixed, current episode severity unspecified F31.60 and Generalized anxiety disorder F41.1 [place] [id number] [place] [address] Aug, Essential hypertension I10 ; Hypertriglyceridemia E78.1 ; Anxiety F41.9 and Screen for STD (sexually transmitted disease) Z11.3 [place] [id number] [place] [address] 07 Jan, 2017 Cellulitis of groin L03.314 [place] [address] [address] September, [place] [address] [address] Aug, [place] [address] [address] Aug, Dental examination Z01.20 [place] [id number] [place] [address] Jul, [place] [address] [address] Jul, Essential hypertension I10 ; Primary insomnia F51.01 and Hypertriglyceridemia E78.1 [place] [id number] [place] [address] May, [facility] [address] [id number] May, Dental examination Z01.20 [place] [id number] [place] [address] May, [facility] [id number] [place] [id number] May, Encounter for dental examination Z01.20 [place] [id number] [place] [address] May, Encounter for routine adult health examination [...] SOCIAL HISTORY Never Assessed REASON FOR VISIT Possible Groin Abscess- right groin, was not there two days ago in the morning 24 hours later it was quarter size nodule, now it is larger than an egg and states that it extends the whole inner crease of his groin with redness and swelling, recently took tylenol and has helped with the pain-Angelito, recent cases of mrsa PLAN OF CARE Activity Details Follow Up prn Reason: VITAL SIGNS Height 71 in 2017-01-09 Weight 324 lbs 2017-01-09 Temperature 98.4 degrees Fahrenheit 2017-01-09 Heart Rate 88 bpm 2017-01-09 Respiratory Rate 20 2017-01-09 BMI 45.18 kg/m2 2017-01-09 Blood pressure systolic 158 mmHg 2017-01-09 Blood pressure diastolic 90 mmHg 2017-01-09 MEDICATIONS Medication Instructions Dosage Frequency Start Date End Date Duration Status Doxycycline Hyclate 100 mg Orally every 12 hrs 1 tablet 12h 07 Jan, 2017 Jan, 07 days Active Pravastatin Sodium 20 mg Orally Once a day at hs 1 tablet May, 90 days Active Zestoretic 20-25 MG Orally Once a day 1 tablet 24h Jul, 90 days Active RESULTS No Results PROCEDURES No [...]
--- OUTSIDE RECORDS SUMMARY | 2018-07-05 10:40 | XMS REPORT ---
Author Author LUIS SANTIAGO Organization 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 [id number] [address] Jan, [facility] [address] [place] [address] Nov, [facility] [address] [place] [address] Nov, Essential hypertension I10 ; Generalized anxiety disorder F41.1 ; BMI 40.0-44.9, adult Z68.41 ; Bipolar affective disorder, currently depressed, moderate F31.32 and Low serum HDL R74.8 [facility] [id number] [address] September, Essential hypertension I10 ; Primary insomnia F51.01 ; Hypertriglyceridemia E78.1 ; Bipolar affective disorder, currently depressed, moderate F31.32 ; Pain in left knee M25.562 ; Other chronic pain G89.29 ; Acute pain of left shoulder M25.512 ; Body mass index (BMI) of 40.0-44.9 in adult Z68.41 ; Morbid (severe) obesity due to excess calories E66.01 and Dental caries K02.9 [place] [address] [address] September, Bipolar affective disorder, currently depressed, moderate F31.32 ; Methamphetamine use disorder, moderate, 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 and BMI 40.0-44.9, adult Z68.41 [place] [address] [address] 24 Aug, 2017 Bipolar affective disorder, current episode mixed, current episode severity unspecified F31.60 and Generalized anxiety disorder F41.1 [place] [address] [address] Aug, Essential hypertension I10 ; Hypertriglyceridemia E78.1 ; Anxiety F41.9 and Screen for STD (sexually transmitted disease) Z11.3 [place] [address] [address] 07 Jan, 2017 Cellulitis of groin L03.314 [place] [address] [address] September, [place] [address] [address] Aug, [place] [address] [address] Aug, Dental examination Z01.20 [place] [address] [address] Jul, [place] [address] [address] Jul, Essential hypertension I10 ; Primary insomnia F51.[address] [facility] [address] [facility] [id number] [address] May, [facility] [id number] [id number] May, Dental examination Z01.20 [facility] [id number] [address] May, [facility] [id number] [id number] May, Encounter for dental examination Z01.20 [facility] [address] [facility] [id number] [address] May, Encounter for routine adult health examination [...] HISTORY Never Assessed REASON FOR VISIT Blood Pressure/Injection - HAIR De Guzman PLAN OF CARE Activity Details Follow Up 3 Months, prn Reason:CHM/HTN VITAL SIGNS Height 71 in 2017-11-07 Weight 297.8 lbs 2017-11-07 Temperature 98.0 degrees Fahrenheit 2017-11-07 Heart Rate 70 bpm 2017-11-07 Respiratory Rate 20 2017-11-07 BMI 41.53 kg/m2 2017-11-07 Blood pressure systolic 100 mmHg 2017-11-07 Blood pressure diastolic 60 mmHg 2017-11-07 MEDICATIONS Medication Instructions Dosage Frequency Start Date End Date Duration Status HydrOXYzine HCl 50 mg Orally every 8 hrs PRN 1 tablet three times per day Nov, 30 days Active Pravastatin Sodium 20 mg Orally Once a day at hs 1 tablet May, Active Zestoretic 20-25 MG Orally Once a day 1 tablet 24h Jul, 90 days Active Tegretol 200 mg Orally Twice a day 1 tablet 12h September, 90 days Active tylenol Active ibuprofen 1 tab Active RESULTS No Results PROCEDURES No Known [...]
--- OUTSIDE RECORDS SUMMARY | 2018-07-05 10:41 | XMS REPORT ---
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 Active 073094711 Problem Conductive hearing loss of both ears H90.0 Active 750309865 Problem Primary insomnia F51.01 Active 1642346 Problem Hypertriglyceridemia E78.1 Active 315588226 Problem Dental caries K02.9 Active 25063346 Problem Decreased hearing of right ear H91.91 Active 291132858 Problem Encounter for routine adult health examination with abnormal findings Z00.01 Active 529374920 Problem Essential hypertension I10 Active 18795934 Problem Tonsillar hypertrophy J35.1 Active 97891469 ALLERGIES No Known Allergies SOCIAL HISTORY Never Assessed PLAN OF CARE Activity Details Follow Up 3 Months Reason:CHM/ HTN VITAL SIGNS Height 71 in 2016-07-04 Weight 329.9 lbs 2016-07-04 Temperature 97.7 degrees Fahrenheit 2016-07-04 Heart Rate 80 bpm 2016-07-04 Respiratory Rate 18 2016-07-04 BMI 46.01 kg/m2 2016-07-04 Blood pressure systolic 151 mmHg 2016-07-04 Blood pressure diastolic 89 mmHg 2016-07-04 MEDICATIONS Medication Instructions Dosage Frequency Start Date End Date Duration Status Zestoretic 20-25 MG Orally Once a day 1 tablet 24h Jul, 90 days Active Pravastatin Sodium 20 mg Orally Once a day at hs 1 tablet May, 90 days Active RESULTS No Results PROCEDURES No Known procedures IMMUNIZATIONS No Known Immunizations MEDICAL (GENERAL) HISTORY [...]
--- OUTSIDE RECORDS SUMMARY | 2018-07-05 10:41 | XMS REPORT ---
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 Active 209347982 Problem Conductive hearing loss of both ears H90.0 Active 451621287 Problem Primary insomnia F51.01 Active 9753048 Problem Hypertriglyceridemia E78.1 Active 990294838 Problem Dental caries K02.9 Active 42988717 Problem Decreased hearing of right ear H91.91 Active 468344927 Problem Encounter for routine adult health examination with abnormal findings Z00.01 Active 580840632 Problem Essential hypertension I10 Active 69243153 Problem Tonsillar hypertrophy J35.1 Active 05760590 ALLERGIES No Known Allergies SOCIAL HISTORY No smoking Hx information available PLAN OF CARE VITAL SIGNS MEDICATIONS No Known Medications RESULTS No Results PROCEDURES No Known procedures IMMUNIZATIONS No Known Immunizations
--- OUTSIDE RECORDS SUMMARY | 2018-07-05 10:41 | XMS REPORT ---
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 Active 740155158 Problem Conductive hearing loss of both ears H90.0 Active 614865243 Problem Primary insomnia F51.01 Active 8207852 Problem Hypertriglyceridemia E78.1 Active 350807077 Problem Dental caries K02.9 Active 33267809 Problem Decreased hearing of right ear H91.91 Active 216725952 Problem Encounter for routine adult health examination with abnormal findings Z00.01 Active 911219645 Problem Essential hypertension I10 Active 28976498 Problem Tonsillar hypertrophy J35.1 Active 85475755 ALLERGIES No Known Allergies SOCIAL HISTORY No smoking Hx information available PLAN OF CARE VITAL SIGNS MEDICATIONS Medication Instructions Dosage Frequency Start Date End Date Duration Status Pravastatin Sodium 20 mg Orally Once a day at hs 1 tablet May, Active RESULTS No Results PROCEDURES No Known procedures IMMUNIZATIONS No Known Immunizations
--- OUTSIDE RECORDS SUMMARY | 2018-07-05 10:41 | XMS REPORT ---
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 Unknown Non Drug Allergy May, Unknown SOCIAL HISTORY No smoking Hx information available PLAN OF CARE Activity Details Follow Up 4 Weeks Reason:f/u HTN VITAL SIGNS Height 71 in 2016-05-23 Weight 335.6 lbs 2016-05-23 Temperature 97.6 degrees Fahrenheit 2016-05-23 Heart Rate 84 bpm 2016-05-23 Respiratory Rate 18 2016-05-23 BMI 46.80 kg/m2 2016-05-23 Blood pressure systolic 140 mmHg 2016-05-23 Blood pressure diastolic 92 mmHg 2016-05-23 MEDICATIONS Medication Instructions Dosage Frequency Start Date End Date Duration Status Lunesta 2 MG Orally Once a day 1 tablet immediately before bedtime 24h May, 30 days Active Lisinopril-Hydrochlorothiazide 10-12.5 MG Orally Once a day 1 tablet 24h May, 90 days Active RESULTS Name Result Date Reference Range THYROID ANALYZER 2016-05-23 TSH 1.200 0.450-4.500 A1C 2016-05-23 Hemoglobin A1c 5.6 4.8-5.6 CBC 2016-05-23 WBC 9.4 3.4-10.8 RBC 5.06 4.14-5.80 Hemoglobin 15.3 12.6-17.7 Hematocrit 43.1 37.5-51.0 MCV 85 79-97 MCH 30.2 26.6-33.0 MCHC 35.5 31.5-35.7 RDW 14.4 12.3-15.4 Platelets 334 150-379 Neutrophils 55 Lymphs 32 Monocytes 7 Eos 5 Basos 0 Neutrophils (Absolute) 5.2 1.4-7.0 Lymphs (Absolute) 3.0 0.7-3.1 Monocytes(Absolute) 0.7 0.1-0.9 Eos (Absolute) 0.5 0.0-0.4 Baso (Absolute) 0.0 0.0-0.2 Immature Granulocytes 1 Immature Grans (Abs) 0.1 0.0-0.1 LIPID PANEL 2016-05-23 Cholesterol, Total 157 100-199 Triglycerides 227 0-149 HDL Cholesterol 27 >39 VLDL Cholesterol Gavin 45 5-40 LDL Cholesterol Calc 85 0-99 CMP 2016-05-23 Glucose, Serum 89 65-99 BUN 9 6-20 Creatinine, Serum 0.91 0.76-1.27 eGFR If NonAfricn Am 115 >59 eGFR If Africn Am 133 >59 BUN/Creatinine Ratio 10 8-19 Sodium, Serum 142 134-144 Potassium, Serum 4.2 3.5-5.2 Chloride, Serum 102 96-106 Carbon Dioxide, Total 21 18-29 Calcium, Serum 9.8 8.7-10.2 Protein, Total, Serum 7.5 6.0-8.5 Albumin, Serum 4.8 3.5-5.5 Globulin, Total 2.7 1.5-4.5 A/G Ratio 1.8 1.1-2.5 Bilirubin, Total 0.2 0.0-1.2 Alkaline Phosphatase, S 97 39-117 AST (SGOT) 21 0-40 ALT (SGPT) 22 0-44 HIV (STATE) 2016-05-23 HEP C ANTIBODY (STATE) 2016-05-23 RESULTS non reactive HEP B SURFACE ANTIGEN (STATE) 2016-05-23 HEP B ANTIBODY non reactive HEP B ANTIBODY (RML) HEP B ANTIBODY (STATE) PROCEDURES Procedure Date Ordered Related Diagnosis Body Site GLYCATED HEMOGLOBIN TEST May 23, 2016 COMPLETE CBC W/AUTO DIFF WBC May 23, 2016 VENIPUNCT, ROUTINE* May 23, 2016 Office Visit, New Pt., Level 4 May 23, 2016 ASSAY THYROID STIM HORMONE May 23, 2016 COMPREHEN METABOLIC PANEL May 23, 2016 No Charge May 23, 2016 LIPID PANEL May 23, 2016 IMMUNIZATIONS No Known Immunizations
== END 2018-07-04 07:05 | disposition home or self-care (01) ==
LOC: ER FS 06:28
DX: K04.7 Periapical abscess without sinus (principal); I10 Essential (primary) hypertension; Z88.7 Allergy status to serum and vaccine; Z82.49 Family history of ischemic heart disease and other diseases of the circulatory system
CPT/HCPCS: 99284

== ENCOUNTER 2018-10-06 13:55 | Emergency (ER) | payer SELFPAY ==
[~2018-10-06] VITALS: Ht 182.9 cm; Wt 145.1 kg
[~2018-10-06 13:55] MED LIST: AMOX500T2 PO; HYDR-4226 PO; IBUP-1780 PO
[2018-10-06] MEDS ORDERED: IBUPROFEN 800 MG (MOTRIN) TAB PO ONE (14:30)
--- NOTE | 2018-10-06 14:51 | Diagnostic Imaging Report ---
INDICATION: Fall with pain in the right hand. TIME OF EXAMINATION: 2:26 PM. FINDINGS: Three views of the right hand demonstrate a fracture at the base of the fifth metacarpal. The fracture line does extend into the carpometacarpal joint. There is some ulnar displacement of the distal fracture fragment. The first and fourth metacarpals are intact. The phalanges are unremarkable. The carpus is unremarkable. IMPRESSION: Intra-articular fracture at the base of the fifth metacarpal with displacement. Dictated by: Dictated on workstation # [id number]
--- NOTE | 2018-10-06 14:51 | Diagnostic Imaging Report ---
INDICATION: Fall with pain in the right wrist. TIME OF EXAM: 02:25 p.m. FINDINGS: Three views of the right wrist were obtained. There is a fracture at the base of the fifth metacarpal. Fracture line appears to extend to the articular surface with the carpal metacarpal joint. There is ulnar displacement of the distal fracture fragment. First through fourth metacarpals are intact. Carpal bones are intact. Distal radius and ulna are intact. IMPRESSION: Intra-articular fracture at the base of the fifth metacarpal. Dictated by: Dictated on workstation # [id number]
[2018-10-06] MEDS ORDERED: IBUP-1780 PO (14:54)
--- NOTE | 2018-10-06 14:54 | ED Upper Extremity ---
General Chief Complaint: Upper Extremity Stated Complaint: RT HAND INJ Nursing Triage Note: PT WAS MOVING SOME BOXES UP SOME STAIRS AND TRIPPED AND LANDED ON HIS RIGHT HAND/WRIST. C/O LATERAL HAND PAIN ON THE 4TH AND 5TH METACARPALS. 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 He presents with concern for acute onset of right hand pain after tripping and falling while carrying some boxes and landing on his right outstretched hand. Pain localizes to the dorsal hand proximal to the fourth and fifth digits. Denies hitting head or sustaining other injury during the episode. No other concerns today. Allergies and Home Medications Allergies Coded Allergies: mcfarlane (Verified Allergy, Severe, Swelling, 07/04/18) Uncoded Allergies: FLU SHOT (Allergy, Severe, 07/04/18) MUSHROOMS (Allergy, Severe, Swelling, 07/04/18) Home Medications Amoxicillin 500 Mg Tablet, 500 MG PO TID Prescribed by: STEPHAN CRAVEN on 07/04/18 0652 Hydrocodone/Acetaminophen 1 Each Tablet, 1 TAB PO Q6H PRN for severe pain Prescribed by: STEPHAN CRAVEN on 07/04/18 0652 Ibuprofen 800 Mg Tablet, 800 MG PO Q8H PRN for PAIN-MILD Prescribed by: STEPHAN CRAVEN on 07/04/18 0653 Patient Home Medication List Home Medication List Reviewed: Yes Review of Systems Constitutional: see HPI All Other Systems Reviewed Negative Unless Noted: Yes Past Rjmwvdb-Gbkxaz-Eckeqt Hx Past Med/Social Hx: Reviewed Nursing Past Med/Soc Hx Patient Social History Type Used: Cigarettes 2nd Hand Smoke Exposure: Yes Recent Foreign Travel: No Contact w/Someone Who Travel: No Recent Infectious Disease Expo: No Recent Hopitalizations: No Immunizations Up To Date Tetanus Booster (TDap): Unknown Seasonal Allergies Seasonal Allergies: No Past Medical History Respiratory: No Cardiac: Yes Hypertension Neurological: No Genitourinary: No Gastrointestinal: No Musculoskeletal: No Endocrine: No HEENT: Yes (Dental Caries) Hearing Impairment: Denies Cancer: No Psychosocial: Yes (Mood Disorder) Anxiety Integumentary: No Adverse Reaction/Blood Tranf: No Family Medical History Reviewed Nursing Family Hx Physical Exam Vital Signs Vital Signs - First Documented 10/06/18 14:11 Temp 99.3 Pulse 90 Resp 20 B/P (MAP) 162/101 (121) O2 Delivery Room Air Capillary Refill : Less Than 3 Seconds Height, Weight, BMI Height: 6'0" Weight: 320lbs. oz. 145.402168jx; BMI Method:Stated General Appearance: no apparent distress This is a younger male appearing nontoxic and in no acute distress. Head is normocephalic and atraumatic. Neck is supple and nontender. Oropharynx is moist. Lungs are clear to auscultation at all stations. There is normal S1 and S2 without rubs or gallops and capillary refill is appropriate, less than 2 seconds globally. Abdomen is soft, nontender and nondistended. Skin is warm and dry without cyanosis, clubbing or edema. Psychiatrically, the patient demonstrates appropriate mood and affect and is alert. From a musculoskeletal standpoint, evaluation of the right upper extremity is concerning for swelling and tenderness proximal to the fourth and fifth digits of the right hand. There is no significant pain with ranging of the digits distally or of the wrist or of the elbow or shoulder on that side. The right upper extremity is neurovascularly intact with strength 5 out of 5, sensation intact to light touch motor disturbances, radial pulses 2+, capillary refill less than 2 seconds, and warm and well-perfused. Progress/Results/Core Measures Results/Orders My Orders Orders - VAN RFASER MD Hand 3 View Right (10/06/18 14:18) Ibuprofen Tablet (Motrin Tablet) (10/06/18 14:30) Wrist 3 View Right (10/06/18 14:18) Vital Signs/I&O 10/06/18 14:11 Temp 99.3 Pulse 90 Resp 20 B/P (MAP) 162/101 (121) O2 Delivery Room Air Blood Pressure Mean: 121 Progress Progress Note : Time: 14:50 Progress Note Patient with fracture of the base of the fifth metacarpal on the right as below. Case discussed with Dr. Dent of orthopedic surgery who states that the patient should follow-up with him tomorrow in his clinic in [place] and should otherwise be placed in an ulnar gutter splint and provided with appropriate pain control. We'll proceed with splinting and discharge home at this time. Patient understands and agrees with the plan of care. Diagnostic Imaging Diagonstic Imaging: Xray Plain Films/CT/US/NM/MRI: hand Comments XR hand R: 5th metacarpal base fx, displaced, EP interp Departure Impression Primary Impression: Fracture of metacarpal base of right hand, closed Qualified Codes: S62.316A - Displaced fracture of base of fifth metacarpal bone, right hand, initial encounter for closed fracture Disposition: HOME, SELF-CARE Condition: Improved Departure-Patient Inst. Referrals: [facility] [place] (PCP) Primary Care Physician VLADISLAV ARGUETA APRN (Family) Primary Care Physician Patient Instructions: Hand Fracture Add. Discharge Instructions: Please call [phone] as soon as you leave the ER to make an appointment to be seen TOMORROW in Dr. Dent's fracture clinic in [facility]. Tell the clinical psychology teacher that Dr. Dent wants you to be worked in for tomorrow. In the meantime, keep the splint clean and dry and rest, ice and elevate your hand. Use the sling for comfort as needed. Return for worsened symptoms or other new concerns. Scripts Ibuprofen (Ibuprofen) 800 Mg Tablet 800 MG PO Q8H PRN for PAIN-MILD, #30 TAB Prov: VAN FRASER MD 10/06/18 VAN FRASER MD Oct 06, 2018 14:53
--- NOTE | 2018-10-06 15:10 | NUR ---
USED 18 INCHES OF THE ORTHOGLASS 3''.
[2018-10-06 15:12] VITALS: BP 123/62
== END 2018-10-06 15:13 | disposition home or self-care (01) ==
LOC: EDUNIT# 13:55 → ER FS 13:57
DX: S62.316A Displaced fracture of base of fifth metacarpal bone, right hand, initial encounter for closed fracture (principal); I10 Essential (primary) hypertension; F41.9 Anxiety disorder, unspecified; F17.210 Nicotine dependence, cigarettes, uncomplicated; Z88.7 Allergy status to serum and vaccine; W01.0XXA Fall on same level from slipping, tripping and stumbling without subsequent striking against object, initial encounter; Y92.59 Other trade areas as the place of occurrence of the external cause; Y99.0 Civilian activity done for income or pay
CPT/HCPCS: 29125; 73110; 73130

== ENCOUNTER 2018-12-30 02:51 | Day surgery (SDC) | payer SELFPAY ==
[2018-12-30] VITALS (12 sets, daily range): BP systolic 116–164; BP diastolic 62–96
[~2018-12-30] VITALS: Ht 180.3 cm; Wt 140.0 kg
[2018-12-30] MEDS ORDERED: NS IV 1000 ML 1,000 ML IV STA ×2 (03:08→05:00)
[2018-12-30] MEDS ORDERED: ONDANSETRON 4 MG/2 ML (SDV) Z0FRAN IVP STA ×2 (03:08→04:59)
[2018-12-30] MEDS ORDERED: KETOROLAC 30 MG/ML VIAL IVP STA (03:08)
--- NOTE | 2018-12-30 03:18 | ED Abdominal Pain ---
General Stated Complaint: ABD PAIN,VOMITTING Source of Information: Patient History of Present Illness Date Seen by Provider: Dec 30, 2018 Time Seen by Provider: 02:56 Initial Comments 28-year-old male presenting with complaints of right upper quadrant abdominal pain and nausea with vomiting. He states this came on this evening around 8 or 9 PM. The pain has been constant since it started. And it is worse when he pushes on his abdomen. It is also worse with movement. He thought that it might be a gas bubble or acid and had tried taking ranitidine because that has helped with gas bubbles in the past. However since that was not helping and he continued to throw up and have pain he came to the emergency department to be evaluated. He denies having any diarrhea. He had a normal bowel movement around 7:30 PM. He last ate around 4 PM. He did get dizzy yesterday and was not feeling very well. He denies any pain with urination. He has had no blood in his urine. Allergies and Home Medications Allergies Coded Allergies: mcfarlane (Verified Allergy, Severe, Swelling, 07/04/18) Uncoded Allergies: FLU SHOT (Allergy, Severe, 07/04/18) MUSHROOMS (Allergy, Severe, Swelling, 07/04/18) Home Medications Amoxicillin 500 Mg Tablet, 500 MG PO TID Prescribed by: STEPHAN CRAVEN on 07/04/18 0652 Hydrocodone/Acetaminophen 1 Each Tablet, 1 TAB PO Q6H PRN for severe pain Prescribed by: STEPHAN CRAVEN on 07/04/18 0652 Ibuprofen 800 Mg Tablet, 800 MG PO Q8H PRN for PAIN-MILD Prescribed by: STEPHAN CRAVEN on 07/04/18 0653 Ibuprofen 800 Mg Tablet, 800 MG PO Q8H PRN for PAIN-MILD Prescribed by: VAN FRASER on 10/06/18 1669 Patient Home Medication List Home Medication List Reviewed: Yes Review of Systems Review of Systems Constitutional: No chills, No diaphoresis, No dizziness, No fever EENTM: No Symptoms Reported Respiratory: No Symptoms Reported Cardiovascular: No Symptoms Reported Gastrointestinal: See HPI, Abdominal Pain (right upper quadrant); Denies Constipated, Denies Diarrhea, Denies Difficulty Swallowing; Nausea; Denies Rectal Bleeding; Vomiting Genitourinary: No Symptoms Reported Musculoskeletal: back pain (chronic) Skin: no symptoms reported Psychiatric/Neurological: No Symptoms Reported Past Ssmsstq-Yaisry-Skiand Hx Past Med/Social Hx: Reviewed Nursing Past Med/Soc Hx Patient Social History Type Used: Cigarettes 2nd Hand Smoke Exposure: Yes Recent Hopitalizations: No Immunizations Up To Date Tetanus Booster (TDap): Unknown Seasonal Allergies Seasonal Allergies: No Past Medical History Surgeries: No Respiratory: No Cardiac: Yes Hypertension Neurological: No Genitourinary: No Gastrointestinal: No Musculoskeletal: No Endocrine: No HEENT: Yes (Dental Caries) Hearing Impairment: Denies Cancer: No Psychosocial: Yes (Mood Disorder) Anxiety Integumentary: No Adverse Reaction/Blood Tranf: No Physical Exam Vital Signs Vital Signs - First Documented 12/30/18 03:02 Temp 97.0 Pulse 62 Resp 20 B/P (MAP) 174/117 (136) Pulse Ox 98 O2 Delivery Room Air Capillary Refill : Height/Weight/BMI Height: 6'0" Weight: 320lbs. oz. 145.110577jh; BMI Method:Stated General Appearance: WD/WN, moderate distress, obese HEENT: PERRL/EOMI, normal ENT inspection, pharynx normal Neck: non-tender, full range of motion, supple, normal inspection Respiratory: chest non-tender, lungs clear, normal breath sounds, no respiratory distress, no accessory muscle use Cardiovascular: normal peripheral pulses, regular rate, rhythm Gastrointestinal: soft, no pulsatile mass, abnormal bowel sounds (hypoactive), guarding (right upper quadrant); No rebound; tenderness (right upper quadrant with positive Cordero's sign); No hepatomegaly, No spleenomegaly Rectal: deferred Extremities: normal range of motion, non-tender, normal inspection, no pedal edema, no calf tenderness, normal capillary refill Neurologic/Psychiatric: alert, oriented x 3 Skin: normal color, warm/dry Progress/Results/Core Measures Results/Orders Lab Results Laboratory Tests Test 12/30/18 03:15 12/30/18 03:47 Range/Units White Blood Count 15.5 H 4.3-11.0 10^3/uL Red Blood Count 4.67 4.35-5.85 10^6/uL Hemoglobin 14.5 13.3-17.7 G/DL Hematocrit 42 40-54 % Mean Corpuscular Volume 89 80-99 FL Mean Corpuscular Hemoglobin 31 25-34 PG Mean Corpuscular Hemoglobin Concent 35 32-36 G/DL Red Cell Distribution Width 13.6 10.0-14.5 % Platelet Count 321 130-400 10^3/uL Mean Platelet Volume 10.0 7.4-10.4 FL Neutrophils (%) (Auto) 51 42-75 % Lymphocytes (%) (Auto) 35 12-44 % Monocytes (%) (Auto) 6 0-12 % Eosinophils (%) (Auto) 6 0-10 % Basophils (%) (Auto) 1 0-10 % Neutrophils # (Auto) 8.0 H 1.8-7.8 X 10^3 Lymphocytes # (Auto) 5.5 H 1.0-4.0 X 10^3 Monocytes # (Auto) 1.0 0.0-1.0 X 10^3 Eosinophils # (Auto) 0.9 H 0.0-0.3 10^3/uL Basophils # (Auto) 0.1 0.0-0.1 10^3/uL Neutrophils % (Manual) 54 % Lymphocytes % (Manual) 34 % Monocytes % (Manual) 6 % Eosinophils % (Manual) 4 % Basophils % (Manual) 0 % Band Neutrophils 2 % Sodium Level 142 135-145 MMOL/L Potassium Level 3.2 L 3.6-5.0 MMOL/L Chloride Level 99 98-107 MMOL/L Carbon Dioxide Level 26 21-32 MMOL/L Anion Gap 17 H 5-14 MMOL/L Blood Urea Nitrogen 16 7-18 MG/DL Creatinine 0.92 0.60-1.30 MG/DL Estimat Glomerular Filtration Rate > 60 BUN/Creatinine Ratio 17 Glucose Level 111 H 70-105 MG/DL Calcium Level 9.6 8.5-10.1 MG/DL Corrected Calcium 9.4 8.5-10.1 MG/DL Total Bilirubin 0.2 0.1-1.0 MG/DL Aspartate Amino Transf (AST/SGOT) 17 5-34 U/L Alanine Aminotransferase (ALT/SGPT) 19 0-55 U/L Alkaline Phosphatase 89 40-136 U/L Total Protein 7.2 6.4-8.2 GM/DL Albumin 4.3 3.2-4.5 GM/DL Lipase 37 8-78 U/L Urine Color YELLOW Urine Clarity CLEAR Urine pH 6.0 5-9 Urine Specific [place] 1.015 L 1.016-1.022 Urine Protein NEGATIVE NEGATIVE Urine Glucose (UA) NEGATIVE NEGATIVE Urine Ketones NEGATIVE NEGATIVE Urine Nitrite NEGATIVE NEGATIVE Urine Bilirubin NEGATIVE NEGATIVE Urine Urobilinogen 0.2 NORMAL MG/DL Urine Leukocyte Esterase NEGATIVE NEGATIVE Urine RBC (Auto) NEGATIVE NEGATIVE Urine RBC NONE /HPF Urine WBC RARE /HPF Urine Squamous Epithelial Cells NONE /HPF Urine Crystals NONE /LPF Urine Bacteria NEGATIVE /HPF Urine Casts NONE /LPF Urine Mucus NONE /LPF Urine Culture Indicated NO My Orders Orders - STEPHAN CRAVEN MD Comprehensive Metabolic Panel (12/30/18 03:08) Lipase (12/30/18 03:08) Ua Culture If Indicated (12/30/18 03:08) Ed Iv/Invasive Line Start (12/30/18 03:08) Cbc With Automated Diff (12/30/18 03:08) Ct Abdomen/Pelvis W (12/30/18 03:08) Ns Iv 1000 Ml (Sodium Chloride 0.9%) (12/30/18 03:08) Ketorolac Injection (Toradol Injection) (12/30/18 03:08) Ondansetron Injection (Zofran Injectio (12/30/18 03:08) Iohexol Injection (Omnipaque 350 Mg/Ml 1 (12/30/18 03:30) Received Contrast (Hold Metformin- Contr (12/30/18 03:30) Ns (Ivpb) (Sodium Chloride 0.9% Ivpb Bag (12/30/18 03:30) Manual Differential (12/30/18 03:15) Medications Given in ED Current Medications Medications Dose Ordered Sig/Cheryl Route Start Time Stop Time Status Last Admin Dose Admin Iohexol 100 ml ONCE ONCE IV 12/30/18 03:30 12/30/18 03:31 DC 12/30/18 03:28 100 ML Sodium Chloride 100 ml ONCE ONCE IV 12/30/18 03:30 12/30/18 03:31 DC 12/30/18 03:28 100 ML Vital Signs/I&O 12/30/18 12/30/18 03:02 04:26 Temp 97.0 97.8 Pulse 62 68 Resp 20 16 B/P (MAP) 174/117 (136) 149/82 (104) Pulse Ox 98 98 O2 Delivery Room Air Room Air Progress Progress Note #1: Progress Note Obtain labs and give IV fluids for hydration, Toradol for pain, Zofran for nausea and vomiting. Will obtain a CT scan of the abdomen and pelvis with IV contrast to evaluate for possible cholecystitis versus pancreatitis Progress Note #2: Progress Note Labs show elevated white blood cell count with normal chemistry. He has no elevated LFTs or lipase. His urinalysis is also clear. However his CT scan he does appear on my review the images that he may have a noncalcified gallstone. There is no sign of obstruction. Patient continues to have pain in the right upper quadrant and a positive Cordero sign despite the Toradol and Zofran. Will discuss the case with the on-call surgeon, Dr. Koch, and see about admission to [facility] for ultrasound and further evaluation. Progress Note #3: Time: 04:58 Progress Note While waiting on the ambulance for transport his pain started to increase again along with nausea so will give Fentanyl 50 mcg IV along with another dose of Zofran 4 mg IV to see if that would help to settle his pain and symptoms to help with the transport to [facility]. Will give maintenance fluids of NS at 125 mls/hr as well since he is remaining NPO. Diagnostic Imaging Diagonstic Imaging: CT Plain Films/CT/US/NM/MRI: abdomen, pelvis Reviewed: Reviewed [facility] Study Departure Communication (Admissions) Time/Spoke to Admitting Phy: 04:21 D/w Dr. Koch at 0421 that the patient had continued pain to RUQ with positive Cordero's sign despite toradol and has elevated WBC count to 15.5K. He has possible non calcified gallstone on my evaluation of his CT scan but normal LFTs and Lipase. Will get ultrasound to evaluate his gallbladder in better detail. Continue fluids and keep him NPO for now. Hold off on antibiotics since no fever and no definite source of infection. Impression Primary Impression: RUQ abdominal pain Additional Impression: Nausea and vomiting Qualified Codes: R11.14 - Bilious vomiting Disposition: ADMITTED INPATIENT Condition: Stable Admissions Decision to Admit Reason: Admit from ER (General) Decision to Admit/Date: Dec 30, 2018 Time/Decision to Admit Time: 04:21 Departure-Patient Inst. Referrals: [facility] [place]) Primary Care Physician VLADISLAV ARGUETA APRN (Family) Primary Care Physician STEPHAN CRAVEN MD Dec 30, 2018 03:18
[2018-12-30] MEDS ORDERED: HOLD METFORMIN - RECEIVED CONTRAST 20 ML VIAL IV SCH (03:30)
[2018-12-30] MEDS ORDERED: IOHEXOL 350 MG/ML 100 ML (OMNIPAQUE 350) VIAL IV ONE (03:30)
[2018-12-30] MEDS ORDERED: NS 100 ML (IVPB) BAG IV ONE (03:30)
[2018-12-30 03:39] LABS: HEMOGLOBIN 14.5 G/DL (13.3-17.7); MEAN CORPUSCULAR HEMOGLOBIN 31 PG (25-34); WHITE BLOOD COUNT 15.5 10^3/uL (4.3-11.0)
[2018-12-30 03:40] LABS: HEMATOCRIT 42 % (40-54); MEAN CORPUSCULAR VOLUME 89 FL (80-99)
[2018-12-30 03:41] LABS: MEAN CORPUSCULAR HGB CONC 35 G/DL (32-36); PLATELET COUNT 321 10^3/uL (130-400); RED CELL DISTRIBUTION WIDTH 13.6 % (10.0-14.5)
[2018-12-30 03:42] LABS: BASOPHILS # (AUTO) 0.1 10^3/uL (0.0-0.1); BASOPHILS % (AUTO) 1 % (0-10); EOSINOPHILS # (AUTO) 0.9 10^3/uL (0.0-0.3); EOSINOPHILS % (AUTO) 6 % (0-10); LYMPHOCYTES # (AUTO) 5.5 X 10^3 (1.0-4.0); LYMPHOCYTES % (AUTO) 35 % (12-44); MONOCYTES % (AUTO) 6 % (0-12); NEUTROPHILS % (AUTO) 51 % (42-75)
[2018-12-30 04:01] LABS: ALANINE AMINOTRANSFERASE 19 U/L (0-55); ALKALINE PHOSPHATASE 89 U/L (40-136); BILIRUBIN,TOTAL 0.2 MG/DL (0.1-1.0); BUN/CREATININE RATIO 17; CALCIUM 9.6 MG/DL (8.5-10.1); CARBON DIOXIDE 26 MMOL/L (21-32); CHLORIDE 99 MMOL/L (98-107); CREATININE SERUM 0.92 MG/DL (0.60-1.30); GFR ESTIMATED > 60; GLUCOSE 111 MG/DL (70-105); POTASSIUM 3.2 MMOL/L (3.6-5.0); SODIUM 142 MMOL/L (135-145); TOTAL PROTEIN 7.2 GM/DL (6.4-8.2)
[2018-12-30 04:02] LABS: BILIRUBIN,URINE NEGATIVE (NEGATIVE); CLARITY,URINE CLEAR; COLOR,URINE YELLOW; GLUCOSE, URINE (UA) NEGATIVE (NEGATIVE); KETONES,URINE NEGATIVE (NEGATIVE); NITRITE,URINE NEGATIVE (NEGATIVE); PROTEIN,URINE NEGATIVE (NEGATIVE)
[2018-12-30 04:02] LABS: ALBUMIN 4.3 GM/DL (3.2-4.5); LIPASE 37 U/L (8-78)
[2018-12-30 04:03] LABS: BACTERIA,URINE NEGATIVE /HPF; LEUKOCYTE ESTERASE ,URINE NEGATIVE (NEGATIVE); UROBILINOGEN,URINE 0.2 MG/DL (NORMAL); WBC,URINE RARE /HPF
[2018-12-30 04:04] LABS: BAND NEUTROPHILS 2 %; BASOPHILS % (MANUAL) 0 %; EOSINOPHILS % (MANUAL) 4 %; LYMPHOCYTES % (MANUAL) 34 %; MONOCYTES % (MANUAL) 6 %; NEUTROPHILS % (MANUAL) 54 %
[2018-12-30] MEDS ORDERED: fentaNYL INJECTION 100 MCG/2 ML AMP IVP STA (04:59)
--- NOTE | 2018-12-30 06:18 | Diagnostic Imaging Report ---
PROCEDURE: CT abdomen and pelvis with contrast. TECHNIQUE: Multiple contiguous axial images were obtained through the abdomen and pelvis after administration of intravenous contrast. Auto Exposure Controls were utilized during the CT exam to meet ALARA standards for radiation dose reduction. INDICATION: Right upper quadrant pain. There are no prior studies available for comparison. FINDINGS: The liver is homogeneous and not enlarged. The gallbladder is folded on itself. There is no evidence of cholelithiasis or acute cholecystitis. The spleen, pancreas, adrenals, kidneys, aorta and inferior vena cava are unremarkable for an acute abnormality. There is a 3.5 CM cyst along the medial aspect of the inferior pole of the left kidney. The stomach is not well-distended and consequently difficult to assess. There is no pelvic mass or free fluid collection evident. The urinary bladder and prostate gland are grossly unremarkable. The appendix is not abnormally thickened. The bone windows show no sign of a fracture or destructive lesion. The lung bases are clear. IMPRESSION: 1. There is no acute abnormality of the abdomen or pelvis. 2. If clinical concern regarding underlying abnormality of the gallbladder exists and further imaging is desired, then ultrasound would be recommended. Dictated by: Dictated on workstation # [id number]
[2018-12-30] MEDS ORDERED: CATHETER FLUSH 10 ML SYR IV PRN (06:30)
[2018-12-30] MEDS ORDERED: ONDANSETRON 4 MG/2 ML (SDV) Z0FRAN IV PRN (06:30)
[2018-12-30] MEDS ORDERED: KETOROLAC 30 MG/ML VIAL IV PRN (06:30)
[2018-12-30] MEDS: NS IV 1000 ML 1,000 ML IV SCH ×2 (06:33→11:00)
[2018-12-30] MEDS: fentaNYL INJECTION 100 MCG/2 ML AMP IV PRN ×2 (09:07→18:11)
[2018-12-30] MEDS ORDERED: IBUP-30 PO (09:13)
[2018-12-30] MEDS ORDERED: LISI1TAB10 PO (09:13)
--- NOTE | 2018-12-30 09:13 | NUR ---
SPOKE WITH THE PATIENT ABOUT HIS MEDICATIONS. HE LISTED WHAT HE IS TAKING. I COMPARED IT WITH THE EXT MED HX. HE STATES HE IS SUPPOSED TO TAKE TEGRETOL FOR MOOD HOWEVER HE DOES NOT TAKE IT BECAUSE HE FEELS FUNNY WHEN HE TAKES IT, HE THINKS HE FEELS BETTER WHEN HE IS NOT TAKING IT. HE TAKES 5 OTC IBU DAILY WHEN HE GETS UP, HE STATES HE NORMALLY GETS UP AROUND 1200. HE DOES NOT REPEAT THE DOSE LATER IN THE DAY.
--- NOTE | 2018-12-30 10:12 | Consultation - Surgery ---
CATAILNO HILLMAN,MED STUDENT 12/30/18 1011: History of Present Illness History of Present Illness Patient Consulted On(funmi/time) 12/30/18 10:06 Date Seen by Provider: Dec 30, 2018 Time Seen by Provider: 09:40 History of Present Illness Pt states that he began experiencing right upper abdominal pain three days ago. Pain was stable for one day and worsened on the third day, causing him to go into [facility]. Describes the pain as originally dull and 4/10 but now periodically he experiences intense, sharp pain. Pain is made worse with breathing or movement. Pain medicine given in ED initially subdued the pain but now pain control is no longer effective. Associates his pain with light- headedness, nausea and vomiting. Allergies and Home Medications Allergies Coded Allergies: mcfarlane (Verified Allergy, Severe, Swelling, 07/04/18) Influenza Virus Vaccines (Unverified Allergy, Unknown, 12/30/18) Uncoded Allergies: MUSHROOMS (Allergy, Severe, Swelling, 07/04/18) Home Medications Ibuprofen 200 Mg Tablet, 1,000 MG PO 1200, (Reported) TAKES 5 (200MG) TABLETS Lisinopril/Hydrochlorothiazide 1 Each Tablet, 1 TAB PO DAILY, (Reported) Patient Home Medication List Home Medication List Reviewed: Yes Past Oeiayse-Ofyznp-Gwtjho Hx Patient Social History Type Used: Cigarettes 2nd Hand Smoke Exposure: Yes Recent Foreign Travel: No Contact w/Someone Who Travel: No Recent Infectious Disease Expo: No Recent Hopitalizations: No Immunizations Up To Date Tetanus Booster (TDap): Unknown Seasonal Allergies Seasonal Allergies: No Surgeries History of Surgeries: No Respiratory History of Respiratory Disorde: No Cardiovascular History of Cardiac Disorders: Yes Cardiac Disorders: Hypertension Neurological History of Neurological Disord: No Genitourinary History of Genitourinary Disor: No Gastrointestinal History of Gastrointestinal Di: No Musculoskeletal History of Musculoskeletal Dis: No Endocrine History of Endocrine Disorders: No HEENT History of HEENT Disorders: Yes (Dental Caries) Hearing Impairment: Denies Cancer History of Cancer: No Psychosocial History of Psychiatric Problem: Yes (Mood Disorder) Behavioral Health Disorders: Anxiety Integumentary History of Skin or Integumenta: No Blood Transfusions Adverse Reaction to a Blood Tr: No Family Medical History Significant Family History: Stroke (grandmother), Other Conditions/Hx (blood clots, grandmother ) Review of Systems-General Constitutional: No chills, No diaphoresis; fever EENTM: No hearing loss, No ear pain, No eye pain, No vision loss Respiratory: cough (smoker); No hemoptysis, No short of breath Cardiovascular: No chest pain, No edema Gastrointestinal: RUQ, see HPI, abdominal pain (RUQ); No constipation, No diarrhea; dysphagia (since onset of vomiting ); No hematemesis, No melena; n ausea, vomiting Genitourinary: No frequency, No incontinence Musculoskeletal: back pain, joint pain Skin: No lesions, No lumps, No rash Psychiatric/Neurological: Anxiety (hx mood disorder), Headache Other Denies abnormal bleeding disorder. Denies cold intolerance but states he might have some heat intolerance due to weight. Physical Exam-General Problems Physical Exam Vital Signs Vital Signs - First Documented 12/30/18 03:02 Temp 97.0 Pulse 62 Resp 20 B/P (MAP) 174/117 (136) Pulse Ox 98 O2 Delivery Room Air Capillary Refill : Less Than 3 Seconds General Appearance: WD/WN, no apparent distress Eyes: Bilateral Eye PERRL, Bilateral Eye EOMI HEENT: No scleral icterus (R), No scleral icterus (L), No pale conjunctivae (R), No pale conjunctivae (L) Neck: non-tender, supple; No thyromegaly Respiratory: chest non-tender, lungs clear, normal breath sounds, no respiratory distress, no accessory muscle use Cardiovascular: regular rate, rhythm, no edema Peripheral Pulses: 2+ Dorsalis Pedis (R), 2+ Left Dors-Pedis (L), 2+ Radial Pulses (R), 2+ Radial Pulses (L) Gastrointestinal: soft, guarding (slight voluntary guarding upon deep RUQ palpation ), tenderness (RUQ tenderness upon palpation), other (+ morelos's sign) Rectal: deferred Extremities: no pedal edema, no calf tenderness, normal capillary refill Neurologic/Psychiatric: no motor/sensory deficits, alert, normal mood/affect, oriented x 3 Skin: normal color, warm/dry Lymphatic: no adenopathy (no LAD, cervical or axillary) Data Review Labs Laboratory Tests 12/30/18 03:15: White Blood Count 15.5H, Red Blood Count 4.67, Hemoglobin 14.5, Hematocrit 42, Mean Corpuscular Volume 89, Mean Corpuscular Hemoglobin 31, Mean Corpuscular Hemoglobin Concent 35, Red Cell Distribution Width 13.6, Platelet Count 321, Mean Platelet Volume 10.0, Neutrophils (%) (Auto) 51, Lymphocytes (%) (Auto) 35, Monocytes (%) (Auto) 6, Eosinophils (%) (Auto) 6, Basophils (%) (Auto) 1, Neutrophils # (Auto) 8.0H, Lymphocytes # (Auto) 5.5H, Monocytes # (Auto) 1.0, Eosinophils # (Auto) 0.9H, Basophils # (Auto) 0.1, Neutrophils % (Manual) 54, Lymphocytes % (Manual) 34, Monocytes % (Manual) 6, Eosinophils % (Manual) 4, Basophils % (Manual) 0, Band Neutrophils 2, Sodium Level 142, Potassium Level 3.2L, Chloride Level 99, Carbon Dioxide Level 26, Anion Gap 17H, Blood Urea Nitrogen 16, Creatinine 0.92, Estimat Glomerular Filtration Rate > 60, BUN/Creatinine Ratio 17, Glucose Level 111H, Calcium Level 9.6, Corrected Calcium 9.4, Total Bilirubin 0.2, Aspartate Amino Transf (AST/SGOT) 17, Alanine Aminotransferase (ALT/SGPT) 19, Alkaline Phosphatase 89, Total Protein 7.2, Albumin 4.3, Lipase 37 12/30/18 03:47: Urine Color YELLOW, Urine Clarity CLEAR, Urine pH 6.0, Urine Specific [place] 1.015L, Urine Protein NEGATIVE, Urine Glucose (UA) NEGATIVE, Urine Ketones NEGATIVE, Urine Nitrite NEGATIVE, Urine Bilirubin NEGATIVE, Urine Urobilinogen 0.2, Urine Leukocyte Esterase NEGATIVE, Urine RBC (Auto) NEGATIVE, Urine RBC NONE, Urine WBC RARE, Urine Squamous Epithelial Cells NONE, Urine Crystals NONE, Urine Bacteria NEGATIVE, Urine Casts NONE, Urine Mucus NONE, Urine Culture Indicated NO Assessment/Plan Assessment/Plan Assessment/Plan acute cholelithiasis Continue IVF, pain control and antiemetics. Continue NPO but PT can have sponge for dry mouth. Ultrasonography shows extensive gallbladder thickening to 0.8cm demonstrating acute cholelithiasis. Recommend cholecystectomy. Clinical Quality Measures DVT/VTE Risk/Contraindication: Risk Factor Score Per Nursin RFS Level Per Nursing on Admit: 2=Moderate GHANSHYAM NICOLE DO 12/30/18 1258: History of Present Illness History of Present Illness Time Seen by Provider: 09:40 Allergies and Home Medications Allergies Coded Allergies: [email or web address] (Verified Allergy, Severe, Swelling, 07/04/18) Influenza Virus Vaccines (Unverified Allergy, Unknown, 12/30/18) Uncoded Allergies: MUSHROOMS (Allergy, Severe, Swelling, 07/04/18) Home Medications Ibuprofen 200 Mg Tablet, 1,000 MG PO 1200, (Reported) TAKES 5 (200MG) TABLETS Lisinopril/Hydrochlorothiazide 1 Each Tablet, 1 TAB PO DAILY, (Reported) Past Cgebnan-Znumpn-Raawfv Hx Patient Social History Alcohol Use: Occasionally Uses Smoking Status: Current Everyday Smoker 2nd Hand Smoke Exposure: No Recent Foreign Travel: No Contact w/Someone Who Travel: No Recent Infectious Disease Expo: No Assessment/Plan Assessment/Plan Assessment/Plan Acute Cholelithiasis/Cholecystitis Plan is to go to OR for Laparoscopic Cholecystectomy with possible cholangiogram, possible open. Discussed risks and complications, not limited to pain, bleeding, infection, scar, damage to bowel or bile ducts and need for further procedure. All questions answered to his satisfaction. Supervisory-Addendum Brief Verification & Attestation Participated in pt care: history, MDM, physical Personally performed: exam, history, MDM Care discussed with: Medical Student Procedures: n/a Verification and Attestation of Medical Student E/M Service A medical student performed and documented this service in my presence. I reviewed and verified all information documented by the medical student and made modifications to such information, when appropriate. I personally performed the physical exam and medical decision making. Ghanshyam Nicole, Dec 30, 2018,12:59 CATALINO HILLMAN,MED STUDENT Dec 30, 2018 10:11 GHANSHYAM NICOLE DO Dec 30, 2018 12:58
--- NOTE | 2018-12-30 11:08 | Diagnostic Imaging Report ---
PROCEDURE: US Abdomen, limited. TECHNIQUE: Multiple realtime grayscale images were obtained over the abdomen in various projections. INDICATION: Abdominal pain with nausea and vomiting FINDINGS: The liver is normal in size without focal lesions. There is no biliary ductal dilatation. Common bile duct measures less than 4 mm. There is cholelithiasis. Pancreas is not well-seen due to bowel gas. Right kidney is normal. No ascites. IMPRESSION: Cholelithiasis, otherwise unremarkable right upper quadrant ultrasound. Dictated by: Dictated on workstation # [id number]
--- NOTE | 2018-12-30 11:20 | NUR ---
PT ARRIVED TO FLOOR VIA WHEELCHAIR FROM ICU. DENIES ANY PAIN AT THIS TIME. ORIENTED PT TO ROOM. CALL LIGHT WITHIN REACH. PT REQUESTING TO REST AT THIS TIME.
--- NOTE | 2018-12-30 12:13 | NUR ---
REPORT GIVEN TO KENNY LANDERS.
[2018-12-30] MEDS ORDERED: ROCURONIUM 10 MG/ML 5 ML SYRINGE IV ONE (13:03)
[2018-12-30] MEDS ORDERED: ONDANSETRON 4 MG/2 ML (SDV) Z0FRAN ONE (13:03)
[2018-12-30] MEDS ORDERED: GLYCOPYRROLATE 0.2 MG/ML (ROBINUL) 2 ML VIAL ONE (13:03)
[2018-12-30] MEDS ORDERED: LIDOCAINE PF 2% 5 ML (XYLOCAINE) VIAL ONE (13:03)
[2018-12-30] MEDS ORDERED: proPOfol 200 MG/20 ML (DIPRIVAN) VIAL IV ONE (13:03)
[2018-12-30] MEDS ORDERED: NEOSTIGMINE 3 MG/3 ML VIAL ONE (13:03)
[2018-12-30] MEDS ORDERED: SEVOFLURANE (ULTANE) 15 ML INHAL SOLN ONE (13:03)
[2018-12-30] MEDS ORDERED: DEXAMETHASONE 10 MG/ML (DECADRON) 1 ML VIAL ONE (13:03)
[2018-12-30] MEDS ORDERED: MIDAZOLAM 2 MG/2 ML (VERSED) VIAL ONE (13:04)
[2018-12-30] MEDS ORDERED: fentaNYL INJECTION 100 MCG/2 ML AMP ONE ×2 (13:04→14:21)
[2018-12-30] MEDS ORDERED: IOPAMIDOL 61% 30 ML (ISOVUE 300) VIAL IV ONE (13:28)
[2018-12-30] MEDS ORDERED: BUP/EPI 0.5% 1:200,000 (MARCAINE) 10ML VIAL IJ ONE ×2 (13:43→13:44)
[2018-12-30] MEDS ORDERED: ceFAZolin INJECTION 3,000 MG ONE (13:47)
[2018-12-30] MEDS: LACTATED RINGERS 1,000 ML IV PRN ×2 (13:48→14:37)
[2018-12-30] MEDS ORDERED: ceFAZolin INJECTION 1,000 MG VIAL IV ONE ×2 (14:00)
--- NOTE | 2018-12-30 15:12 | Progress Note-Post Operative ---
Post-Operative Progess Note Surgeon (s)/Desulphuring Operator (s) Surgeon SUZANNE NICOLE DO Desulphuring Operator: Lynsey Pre-Operative Diagnosis Acute Ashlyn/ashlyn Post-Operative Diagnosis same Procedure & Operative Findings Date of Procedure 12/30/18 Procedure Performed/Findings Lap ashlyn with IOC Anesthesia Type GET Estimated Blood Loss Estimated blood loss (mL): scant Specimens/Packing Specimens Removed GB and contents SUZANNE NICOLE DO Dec 30, 2018 15:12
[2018-12-30] MEDS ORDERED: ACHD5005 PO (15:14)
[2018-12-30] MEDS ORDERED: RT-ALBUTEROL SULF 2.5 MG/3 ML PRE-MIX VIAL ONE (15:15)
--- NOTE | 2018-12-30 15:15 | Discharge Inst-Surgical ---
Discharge Inst-Surgical Depart Medication/Instructions New, Converted or Re-Newed RX: RX Given to Pt/Family Patient Instructions Follow up Appt: Make appointment for 1 week. [phone] Instructions: No lifting greater than 20 pounds. No strenuous activity. May shower in 24 hours, no tub bath or soaking. Use incentive spirometer at home as directed. No Smoking Skin/Wound Care: May remove bandages in am. You need to leave the Dermabond on incision it will fall off on it's own. Symptoms to Report: Appetite Changes, Extremity Discoloration, Numbness/Tingling, Swelling Increased, Bleeding Excessive, Eyesight Changes, Pain Increased, Urine Color Change, Constipation(Persistent), Fever over 101 degree F, Pain/Pressure in chest, Urinating Difficulty, Cough Up/Vomit Blood, Heart Beat Irreg/Pounding, Pain/Pressure in jaw, Cramps in feet or legs, Lightheadedness, Pain/Pressure in shoulder, Diarrhea(Persistent), Memory Changes Suddenly, Questions/Concerns, Weight gain consecutive days, Dizziness/Fainting, Nausea/Vomiting, Shortness of Breath, Weight gain over 2 pounds If questions or concerns contact your physician Or seek help at emergency department. Activity Activity as Tolerated: Yes Activity Instructions: Avoid Stress to Incision Driving Instructions: No Driving/Refer to Diet Discharge Diet: Avoid Fatty Foods, Low Fat/Low Cholesterol Diet After 24 Hours: Clear Liquid if Nauseous If Any Problems/Questions/Issu: Contact Your Physician, Go to Emergency Room, Go to Quick Care Skin/Wound Care Infection Signs and Symptoms: Increased Redness, Foul Odor of Wound, Increased Drainage, Skin Itchy or Has a Rash, Increased Swelling, Temperature Above 101 F Wound Care Comment: heating pad to shoulder or neck tonight for pain Bathing Instructions: Shower Stitches/[place]/Dermabond Dis: Dermabond Ice Pack: Ice On and Off Site SUZANNE NICOLE DO Dec 30, 2018 15:15
[2018-12-30] MEDS ORDERED: HYDROmorphone 2 MG/ML VIAL (DILAUDID) IV ONE (15:30)
[2018-12-30] MEDS ORDERED: RT-ALBUTEROL SULF 2.5 MG/3 ML PRE-MIX VIAL INH ONE (15:30)
[2018-12-30] MEDS ORDERED: ONDANSETRON 4 MG/2 ML (SDV) Z0FRAN IVP PRN (15:30)
[2018-12-30] MEDS ORDERED: morphine INJ 10 MG/ML 1ML (SYR OR VIAL) IVP ONE (15:30)
--- NOTE | 2018-12-30 16:38 | Diagnostic Imaging Report ---
INDICATION: Laparoscopic cholangiogram. COMPARISON: 12/30/2018. TOTAL FLUOROSCOPY TIME: 20 seconds TOTAL NUMBER FLUOROSCOPIC IMAGES OBTAINED: 2 FINDINGS: Two intraoperative image intensifier views of the right upper abdominal quadrant were obtained during intraoperative cholangiogram. Images provided show contrast filling the intrahepatic and extrahepatic biliary ductal systems. No gross intraluminal filling defects are seen. Contrast empties into the small bowel. Please note, however, interpreting radiologist was not present during the procedure. IMPRESSION: Fluoroscopic guidance provided during intraoperative Cholangiogram. Dictated by: Dictated on workstation # [id number]
[2018-12-31] MEDS ORDERED: ONDA4TAB11 PO (00:15)
--- NOTE | 2018-12-31 02:33 | OPERATIVE REPORT ---
DATE OF SERVICE: PREOPERATIVE DIAGNOSES: Acute cholecystitis, cholelithiasis. POSTOPERATIVE DIAGNOSES: Acute cholecystitis, cholelithiasis. PROCEDURE: Laparoscopic cholecystectomy, intraoperative cholangiogram. SURGEON: Suzanne Koch DO CHIEF OF STAFF DOCTOR: Sunny Menon DO ANESTHESIA: General endotracheal tube. SPECIMEN: Gallbladder and contents. BLOOD LOSS: Scant. FLUIDS: Per anesthesia. POSTOPERATIVE CONDITION: Stable. INDICATION FOR PROCEDURE: The patient is a 28-year-old male who had some right upper quadrant pain, elevated white count and had ultrasound, which showed cholecystitis, cholelithiasis. FINDINGS: The patient had a thickened gallbladder wall. It was erythematous and he had a lot of adhesions to the gallbladder. He also had some stones in the gallbladder, suspected acute cholecystitis and cholelithiasis. PROCEDURE NOTE: After informed consent was obtained, the patient was brought to the operating room, placed on the operating table in supine position, sterilely prepped and draped in normal fashion. Local lidocaine was used to infiltrate the skin above the umbilicus. I made the incision with #11 blade, carried down through the skin into subcutaneous tissue, then deepened down to subcutaneous tissue with Bovie electrocautery down to fascia. Fascia was incised with Bovie electrocautery and bluntly entered the abdomen, swept a finger around, placed 11 mm trocar port under direct visualization. Created pneumoperitoneum and then placed 3 more ports in normal fashion using local lidocaine, 11 blade for stab incision and VersaStep system, all done under direct visualization, one in subxiphoid and two in the right upper quadrant. The patient then placed slightly reverse Trendelenburg and rotated left, able to visualize the gallbladder, grasped at the fundus and taken in superior direction. There was a lot of adhesions to the gallbladder. This usually indicates a cholecystitis. It looked acute because of the gallbladder inflammation and was thickened, little bit of edema around the wall as well. Carefully started taking down these adhesions with Bovie electrocautery as well as blunt dissection. Once I was able to get these down and grasp down Javi's pouch and pulled in the inferolateral direction, started coming across trying to find the cystic duct and cystic artery dissected out from the inflammatory tissue around it, came across the cystic artery first, placed 1 clip distally, one proximally and cut with Metzenbaum scissors. Continued dissecting out cystic duct, able to get around the cystic duct, placed a clip distally and then cut jail through Metzenbaum scissors. Placed a cholangiogram catheter and shot a cholangiogram got good spillage of dye down the cystic duct into the common bile duct and into the small intestine as well as up into common hepatic and right and left hepatics. The common bile duct and common hepatic ducts were actually pretty dilated, but did not see any stones. Removed the cholangiogram catheter, placed 2 clips proximally on the cystic duct and cut the cystic duct with Metzenbaum scissors and then removed the gallbladder from bed of liver with L-hook cautery, which was completely removed, placed a bag in the abdomen, placed the gallbladder in a bag and removed through supraumbilical incision. Placed the port back into the abdomen, copiously irrigated with normal saline, suctioned this out. There was no bleeding from the liver, pictures taken and at this point, then placed the patient in supine. Because it was so deep, elected to use a David-Dominga to do a [id number] suture with 0 Vicryl and got a good closure of this fascia, tied this tight and looked with a 5 mm scope and looked good. At this point, then allowed all the pneumoperitoneum to escape and then copiously irrigated all incisions with normal saline, closing 3 small 5 mm incisions with single interrupted 4-0 undyed Monocryl subcuticular stitch, closed the supraumbilical incision with 3 interrupted 4-0 undyed Monocryl subcuticular stitches. Area was cleaned and dried and Dermabond placed as well as Band-Aids. The patient then transferred to recovery room in stable condition. Sponge, instrument and needle count correct at the end of the case. Dr. Menon assisted in this case helping to make incisions, close incisions as well as identify anatomy, hold anatomy out of the way. Job ID: [id number] DocumentID: [id number] Dictated Date: 12/30/2018 15:10:50 Home Sales Service Professional Date: 12/31/2018 00:52:18 Dictated By: SUZANNE KOCH DO
--- NOTE | 2018-12-31 07:49 | Anesthesia-General Post-Op ---
General Significant Intra-Op Events Notes late entry Patient Condition Mental Status/LOC: Same as Preop Cardiovascular: Satisfactory Nausea/Vomiting: Absent Respiratory: Satisfactory Pain: Controlled Complications: Absent Post Op Complications Complications None Follow Up Care/Instructions Patient Instructions None needed. Anesthesia/Patient Condition Patient Condition Patient is doing well, no complaints, stable vital signs, no apparent adverse anesthesia problems. No complications reported per nursing. ARTURO DELGADO CRNA Dec 31, 2018 07:48
== END 2018-12-30 18:49 | disposition home or self-care (01) ==
LOC: EDUNIT# 02:51 → ER FS 02:52 → ICU 04:37 → UNDOADMOB 04:37 → SDC 05:56 → UNDOADMOB 05:56 → ICU 05:56 → 4TH 12:15 → ICU 12:15 → UNDODISOB 18:49 → SDC 18:49
PROVIDERS: ATTEND Surgery
DX: K80.12 Calculus of gallbladder with acute and chronic cholecystitis without obstruction (principal); E66.01 Morbid (severe) obesity due to excess calories; R11.14 Bilious vomiting; Z79.891 Long term (current) use of opiate analgesic; Z79.899 Other long term (current) drug therapy; Z91.018 Allergy to other foods; Z88.7 Allergy status to serum and vaccine; Z87.891 Personal history of nicotine dependence; Z68.41 Body mass index [BMI] 40.0-44.9, adult
CPT/HCPCS: 36415; 74177; 76705; 80053; 81000; 83690; 85007; 85027; 87081; 88304; 96361; 96374; 96375; 96376; G0378

== ENCOUNTER 2018-12-31 00:05 | Emergency (ER) | payer SELFPAY ==
[~2018-12-31] VITALS: Ht 177.8 cm; Wt 140.6 kg
[~2018-12-31 00:05] MED LIST changes: +ACHD5005 PO; +IBUP-30 PO; +KETOROLAC 60 MG/2 ML VIAL ONE; +LISI1TAB10 PO; +RX-ONDANSETRON 4 MG ODT (ZOFRAN) PPK #4 ONE
[2018-12-31] MEDS: KETOROLAC 60 MG/2 ML VIAL IM STA (00:05)
[2018-12-31] MEDS ORDERED: ONDA4TAB11 PO (00:15)
[2018-12-31] MEDS ORDERED: RX-ONDANSETRON 4 MG ODT (ZOFRAN) PPK #4 PO PRN (00:15)
--- NOTE | 2018-12-31 00:15 | ED General ---
General Chief Complaint: Abdominal/GI Problems Stated Complaint: SUTURE BLEEDING Source of Information: Patient History of Present Illness Date Seen by Provider: Dec 31, 2018 Time Seen by Provider: 00:01 Initial Comments 28-year-old male presenting to the emergency department with concerns about tearing open part of his incisions from laparoscopic cholecystectomy done December 30. He had a laparoscopic cholecystectomy done by Dr. Nicole at [facility] during the day on Friday. He was discharged home in good condition. He had been doing well but took a nap this evening. He woke up from the nap and had slid to his side during the nap. As he was trying to get up he had felt something pop on his abdomen and had some bleeding. He was concerned that he had burst open the stitches so he came to be checked out. He has been having abdominal pain and nausea, especially when he moves around. He did have some bright red blood from the midline main trocar incision but nothing was gaping open and the bleeding is controlled. Allergies and Home Medications Allergies Coded Allergies: mcfarlane (Verified Allergy, Severe, Swelling, 07/04/18) Influenza Virus Vaccines (Unverified Allergy, Unknown, 12/30/18) Uncoded Allergies: MUSHROOMS (Allergy, Severe, Swelling, 07/04/18) Home Medications Hydrocodone Bit/Acetaminophen 1 Tab Tab, 1 TAB PO Q6H PRN for PAIN-MODERATE Prescribed by: SUZANNE NICOLE on 12/30/18 1514 Ibuprofen 200 Mg Tablet, 1,000 MG PO 1200, (Reported) TAKES 5 (200MG) TABLETS Lisinopril/Hydrochlorothiazide 1 Each Tablet, 1 TAB PO DAILY, (Reported) Ondansetron 4 Mg Tab.rapdis, 4 MG PO Q6H PRN for NAUSEA/VOMITING Prescribed by: STEPHAN CRAVEN on 12/31/18 0015 Patient Home Medication List Home Medication List Reviewed: Yes Review of Systems Review of Systems Constitutional: No chills, No fever EENTM: no symptoms reported Respiratory: no symptoms reported Cardiovascular: no symptoms reported Gastrointestinal: see HPI Genitourinary: no symptoms reported Musculoskeletal: no symptoms reported Skin: other (some bruising around the incision sites on abdominal wall) Psychiatric/Neurological: No Symptoms Reported Past Iucvwzu-Idbzcr-Pmwfmq Hx Past Med/Social Hx: Reviewed Nursing Past Med/Soc Hx Patient Social History Alcohol Use: Denies Use Recreational Drug Use: No Type Used: Cigarettes 2nd Hand Smoke Exposure: No Recent Foreign Travel: No Contact w/Someone Who Travel: No Recent Hopitalizations: No Immunizations Up To Date Tetanus Booster (TDap): Unknown Seasonal Allergies Seasonal Allergies: No Past Medical History Surgeries: Yes Gallbladder (30 Dec 2018 laparoscopic) Respiratory: No Cardiac: Yes Hypertension Neurological: No Genitourinary: No Gastrointestinal: No Musculoskeletal: No Endocrine: No HEENT: Yes (Dental Caries) Hearing Impairment: Denies Cancer: No Psychosocial: Yes (Mood Disorder) Anxiety Integumentary: No Adverse Reaction/Blood Tranf: No Family Medical History Stroke, Other Conditions/Hx Physical Exam Vital Signs Vital Signs - First Documented 12/31/18 00:10 Temp 99.3 Pulse 73 Resp 18 B/P (MAP) 144/76 (98) Pulse Ox 98 O2 Delivery Room Air Capillary Refill : Height, Weight, BMI Height: 5'11.00" Weight: 308lbs. 9.0oz. [id number]; 43.0 BMI Method:Stated General Appearance: No Apparent Distress, WD/WN, Obese HEENT: PERRL/EOMI, Pharynx Normal Gastrointestinal: Normal Bowel Sounds, No Pulsatile Mass, Soft, Other (mild tenderness around incision sites. small amount of bright red blood at superior portion of the midline abdominal incision site, no active bleeding. 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 cleaned dried blood on abdominal wall. reinforced tissue adhesive on midline incision with additional layer of glue. Counseled on follow up and return precautions. Departure Impression Primary Impression: Encounter for attention to surgical dressings and sutures Disposition: 01 HOME, SELF-CARE Condition: Stable Departure-Patient Inst. Decision time for Depature: 00:12 Referrals: [facility] (PCP) Primary Care Physician VLADISLAV ARGUETA APRN (Family) Primary Care Physician Patient Instructions: Cholecystectomy, Laparoscopic Surgery, Laceration Repair With Glue (DC) Add. Discharge Instructions: Keep wounds clean and dry. For the next 24 hours you may take the pain medicine every 4 hours if needed for severe pain. Use Ibuprofen for breakthrough pain Ice 20-30 minutes every few hours to help with pain and inflammation on your abdominal wounds will help with swelling and pain as well. Check back with the surgeon or clinic for continued concerns Use the dissolving nausea medicine if needed to help keep your stomach settled. All discharge instructions reviewed with patient and/or family. Voiced understanding. Scripts Ondansetron (Ondansetron Odt) 4 Mg Tab.rapdis 4 MG PO Q6H PRN for NAUSEA/VOMITING for 3 Days, #12 TAB 0 Refills Prov: STEPHAN CRAVEN MD 12/31/18 STEPHAN CRAVEN MD Dec 31, 2018 00:15
[2018-12-31 00:19] VITALS: BP 144/76
== END 2018-12-31 00:18 | disposition home or self-care (01) ==
LOC: EDUNIT# 00:05 → ER FS 00:07
DX: K91.840 Postprocedural hemorrhage of a digestive system organ or structure following a digestive system procedure (principal); I10 Essential (primary) hypertension; F41.9 Anxiety disorder, unspecified; F39 Unspecified mood [affective] disorder; Z88.7 Allergy status to serum and vaccine; Z90.49 Acquired absence of other specified parts of digestive tract
CPT/HCPCS: 99284

== ENCOUNTER 2019-05-26 20:47 | Emergency (ER) | payer SELFPAY ==
[~2019-05-26] VITALS: Ht 180.3 cm; Wt 161.8 kg
[~2019-05-26 20:47] MED LIST changes: -KETOROLAC 60 MG/2 ML VIAL ONE; -LISI1TAB10 PO; +LISI1TAB26 PO; +ONDA4TAB11 PO; -RX-ONDANSETRON 4 MG ODT (ZOFRAN) PPK #4 ONE
--- NOTE | 2019-05-26 21:35 | ED Integumentary General ---
General Chief Complaint: Skin/Wound Problems Stated Complaint: POSS CIST ON REAR END,LEGS TINGLING Nursing Triage Note: pt states abscess in gluteal fold making legs tingle Source: patient History of Present Illness Date Seen by Provider: May 26, 2019 Time Seen by Provider: 21:35 Initial Comments 29-year-old male presenting with complaints of swelling and pain to the left buttocks. He states this is been getting worse over the last week or better. He also has been having night sweats and fever. He has increasing pain in the sensation of sitting on a ball or hard object. He has tingling into his legs if he sits in one position for too long. He has had something similar on the right butt cheek and was told that it was a cyst. He had some small amount of drainage from this area on the left buttock cheek initially but then it stopped. Since then he's had increasing swelling and pain to this spot. He states that he does have chronic diarrhea since having his gallbladder out. He takes several showers a day due to having the chronic diarrhea. Allergies and Home Medications Allergies Coded Allergies: mcfarlane (Verified Allergy, Severe, Swelling, 07/04/18) Influenza Virus Vaccines (Unverified Allergy, Unknown, 12/30/18) Uncoded Allergies: MUSHROOMS (Allergy, Severe, Swelling, 07/04/18) Home Medications Cephalexin 500 Mg Tablet, 500 MG PO QID Prescribed by: STEPHAN CRAVEN on 05/26/19 1019 Hydrocodone Bit/Acetaminophen 1 Tab Tab, 1 TAB PO Q6H PRN for PAIN-MODERATE Prescribed by: SUZANNE NICOLE on 12/30/18 1514 Ibuprofen 200 Mg Tablet, 1,000 MG PO 1200, (Reported) TAKES 5 (200MG) TABLETS Lisinopril/Hydrochlorothiazide 1 Each Tablet, 1 TAB PO DAILY, (Reported) Ondansetron 4 Mg Tab.rapdis, 4 MG PO Q6H PRN for NAUSEA/VOMITING Prescribed by: STEPHAN CRAVEN on 12/31/18 0015 Patient Home Medication List Home Medication List Reviewed: Yes Review of Systems Review of Systems Constitutional: chills, fever (with night sweats), malaise EENTM: no symptoms reported Respiratory: no symptoms reported Cardiovascular: no symptoms reported Gastrointestinal: diarrhea (chronic since having cholecystectomy) Genitourinary: no symptoms reported Musculoskeletal: no symptoms reported Skin: see HPI Psychiatric/Neurological: Tingling (into left leg if he sits in one position too long on this swollen tender area in his left butt cheek) Past Owriddo-Pccaaq-Jfbdfa Hx Past Med/Social Hx: Reviewed Nursing Past Med/Soc Hx Patient Social History Alcohol Use: Denies Use Recreational Drug Use: No Type Used: Cigarettes 2nd Hand Smoke Exposure: No Recent Foreign Travel: No Contact w/Someone Who Travel: No Recent Infectious Disease Expo: No Recent Hopitalizations: No Physical Abuse: No Sexual Abuse: No Mistreated: No Fear: No Immunizations Up To Date Tetanus Booster (TDap): Unknown Seasonal Allergies Seasonal Allergies: No Past Medical History Surgeries: Yes Gallbladder Respiratory: No Cardiac: Yes Hypertension Neurological: No Genitourinary: No Gastrointestinal: No Musculoskeletal: No Endocrine: No HEENT: Yes (Dental Caries) Hearing Impairment: Denies Cancer: No Psychosocial: Yes (Mood Disorder) Anxiety Integumentary: No Adverse Reaction/Blood Tranf: No Family Medical History Stroke, Other Conditions/Hx Physical Exam Vital Signs Vital Signs - First Documented 05/26/19 21:27 Temp 36.8 Pulse 108 Resp 16 B/P (MAP) 189/103 (131) Pulse Ox 96 O2 Delivery Room Air Capillary Refill : Less Than 3 Seconds General Appearance: WD/WN, no apparent distress, obese Cardiovascular: normal peripheral pulses, tachycardia Respiratory: chest non-tender, lungs clear, normal breath sounds, no respiratory distress, no accessory muscle use Gastrointestinal: normal bowel sounds, non tender, soft, no pulsatile mass Extremities: normal range of motion, non-tender, normal capillary refill Neurologic/Psychiatric: alert, normal mood/affect, oriented x 3 Skin: warm/dry, other (erythema and induration to left butt cheek by gluteal cleft. no fluctuance or drainage. tender to palpation) Procedures/Interventions I&D : Site: left buttock Blade Size: 15 I & D Procedure: sterile dressing applied Progress After obtaining signed consent from the patient the wound was prepped with a chlorhexidine surgical prep. Then using 1% plain lidocaine the skin was anesthetized with a wheal of anesthetic. Then a 15 blade was used to make a single incision. This resulted in bleeding and then with the deeper incision a small amount of purulent drainage was obtained along with the blood. A culture was obtained and sent for study. The wound was then dressed with sterile dressing. Counseled to do warm soaks or hot packs to help A come to head and drain better. Continue with antibiotics. Counseled on follow-up and return precautions. Progress/Results/Core Measures Results/Orders Lab Results Laboratory Tests Test 05/26/19 22:05 Range/Units White Blood Count 17.6 H 4.3-11.0 10^3/uL Red Blood Count 4.62 4.35-5.85 10^6/uL Hemoglobin 14.5 13.3-17.7 G/DL Hematocrit 41 40-54 % Mean Corpuscular Volume 88 80-99 FL Mean Corpuscular Hemoglobin 31 25-34 PG Mean Corpuscular Hemoglobin Concent 36 32-36 G/DL Red Cell Distribution Width 13.0 10.0-14.5 % Platelet Count 330 130-400 10^3/uL Mean Platelet Volume 9.2 7.4-10.4 FL Neutrophils (%) (Auto) 61 42-75 % Lymphocytes (%) (Auto) 25 12-44 % Monocytes (%) (Auto) 8 0-12 % Eosinophils (%) (Auto) 5 0-10 % Basophils (%) (Auto) 1 0-10 % Neutrophils # (Auto) 10.8 H 1.8-7.8 X 10^3 Lymphocytes # (Auto) 4.3 H 1.0-4.0 X 10^3 Monocytes # (Auto) 1.4 H 0.0-1.0 X 10^3 Eosinophils # (Auto) 0.9 H 0.0-0.3 10^3/uL Basophils # (Auto) 0.1 0.0-0.1 10^3/uL Neutrophils % (Manual) 52 % Lymphocytes % (Manual) 37 % Monocytes % (Manual) 6 % Eosinophils % (Manual) 4 % Basophils % (Manual) 0 % Band Neutrophils 1 % Blood Morphology Comment NORMAL Sodium Level 139 135-145 MMOL/L Potassium Level 3.3 L 3.6-5.0 MMOL/L Chloride Level 99 98-107 MMOL/L Carbon Dioxide Level 26 21-32 MMOL/L Anion Gap 14 5-14 MMOL/L Blood Urea Nitrogen 14 7-18 MG/DL Creatinine 0.87 0.60-1.30 MG/DL Estimat Glomerular Filtration Rate > 60 BUN/Creatinine Ratio 16 Glucose Level 99 70-105 MG/DL Lactic Acid Level 0.76 0.50-2.00 MMOL/L Calcium Level 9.7 8.5-10.1 MG/DL Corrected Calcium 9.5 8.5-10.1 MG/DL Total Bilirubin 0.3 0.1-1.0 MG/DL Aspartate Amino Transf (AST/SGOT) 16 5-34 U/L Alanine Aminotransferase (ALT/SGPT) 17 0-55 U/L Alkaline Phosphatase 104 40-136 U/L Total Protein 7.1 6.4-8.2 GM/DL Albumin 4.2 3.2-4.5 GM/DL My Orders Orders - STEPHAN CRAVEN MD Comprehensive Metabolic Panel (05/26/19 21:54) Ed Iv/Invasive Line Start (05/26/19 21:54) Cbc With Automated Diff (05/26/19 21:54) Lactic Acid Analyzer (05/26/19 21:54) Ct Pelvis W (05/26/19 21:54) Ketorolac Injection (Toradol Injection) (05/26/19 21:54) Manual Differential (05/26/19 22:05) Iohexol Injection (Omnipaque 350 Mg/Ml 1 (05/26/19 22:30) Received Contrast (Hold Metformin- Contr (05/26/19 22:30) Sodium Chloride Flush (Catheter Flush Sy (05/26/19 22:30) Ns (Ivpb) (Sodium Chloride 0.9% Ivpb Bag (05/26/19 22:30) Consent-Obtain Consent For (05/26/19 23:11) Wound Culture (05/26/19 23:11) Wound Dressing-Ed (05/26/19 23:11) Ceftriaxone For Iv Use (Rocephin For I (05/26/19 23:13) Lidocaine 1% Inj 20 Ml (Xylocaine 1% Inj (05/26/19 23:23) Rx-Hydrocodone/Apap 5-325 Mg (Rx-Vicodin (05/27/19 00:30) Rx-Acetaminophen/Codeine (Rx-Tylenol #3) (05/27/19 00:30) Medications Given in ED Current Medications Medications Dose Ordered Sig/Cheryl Route Start Time Stop Time Status Last Admin Dose Admin Sodium Chloride 10 ml NEEDED PRN IV 05/26/19 22:30 05/26/19 22:28 10 ML Sodium Chloride 100 ml ONCE ONCE IV 05/26/19 22:30 05/26/19 22:31 DC 05/26/19 22:35 100 ML Vital Signs/I&O 05/26/19 21:27 Temp 36.8 Pulse 108 Resp 16 B/P (MAP) 189/103 (131) Pulse Ox 96 O2 Delivery Room Air Blood Pressure Mean: 131 Progress Progress Note #1: Progress Note With him having complaints of pain feeling like it went down to his tailbone and night sweats and fever will obtain labs and a lactic acid. We'll also perform a CT scan to evaluate make sure that this is not a perirectal abscess requiring surgery consult. give toradol for pain. Progress Note #2: Progress Note labs show normal chemistry and lactic acid but his WBC count is elevated. CT scan shows 1 cm x 2 cm abscess with surrounding cellulitis. He has no perirectal extension. Consented for incision and drainage. Given Rocephin 1 g IV. Will discharge on Keflex and send a culture of drainage from the abscess. Counseled on follow-up and return precautions. Diagnostic Imaging Diagonstic Imaging: CT Plain Films/CT/US/NM/MRI: pelvis Comments There is a small 10 mm x 20 mm subcutaneous abscess along the high left gluteal fold. There is mild adjacent stranding, likely cellulitis. Read by radiologist Abiodun kincaid M.D. Study read at 22:56 PM and faxed at 23:01 PM Reviewed: Reviewed Night [facility] Study Departure Impression Primary Impression: Abscess of buttock, left Additional Impression: Cellulitis of buttock, left Disposition: HOME, SELF-CARE Condition: Stable Departure-Patient Inst. Decision time for Depature: 23:47 Referrals: [facility] [place] (PCP) Primary Care Physician VLADISLAV ARGUETA APRN (Family) Primary Care Physician Patient Instructions: Abscess Incision and Drainage (DC), Cellulitis (Skin Infection), Adult (DC) Add. Discharge Instructions: Take antibiotics until gone. Follow up with clinic for continued problems/concerns All discharge instructions reviewed with patient and/or family. Voiced understanding. Scripts Cephalexin (Cephalexin) 500 Mg Tablet 500 MG PO QID for abscess/cellulitis for 10 Days, #40 TAB 0 Refills Prov: STEPHAN CRAVEN MD 05/26/19 Images Torso/Trunk 1 - Swelling, Tenderness (tender indurated area to left upper butt cheek that extends down to gluteal cleft. no fluctuance or drainage) STEPHAN CRAVEN MD May 26, 2019 21:35
[2019-05-26] MEDS ORDERED: KETOROLAC 30 MG/ML VIAL IVP STA (21:54)
[2019-05-26 22:14] LABS: HEMATOCRIT 41 % (40-54); HEMOGLOBIN 14.5 G/DL (13.3-17.7); MEAN CORPUSCULAR HEMOGLOBIN 31 PG (25-34); WHITE BLOOD COUNT 17.6 10^3/uL (4.3-11.0)
[2019-05-26 22:15] LABS: BASOPHILS # (AUTO) 0.1 10^3/uL (0.0-0.1); BASOPHILS % (AUTO) 1 % (0-10); EOSINOPHILS # (AUTO) 0.9 10^3/uL (0.0-0.3); EOSINOPHILS % (AUTO) 5 % (0-10); LYMPHOCYTES # (AUTO) 4.3 X 10^3 (1.0-4.0); LYMPHOCYTES % (AUTO) 25 % (12-44); MEAN CORPUSCULAR HGB CONC 36 G/DL (32-36); MEAN CORPUSCULAR VOLUME 88 FL (80-99); MEAN PLATELET VOLUME 9.2 FL (7.4-10.4); MONOCYTES # (AUTO) 1.4 X 10^3 (0.0-1.0); MONOCYTES % (AUTO) 8 % (0-12); NEUTROPHILS # (AUTO) 10.8 X 10^3 (1.8-7.8); NEUTROPHILS % (AUTO) 61 % (42-75); PLATELET COUNT 330 10^3/uL (130-400)
[2019-05-26 22:30] LABS: BUN/CREATININE RATIO 16; CARBON DIOXIDE 26 MMOL/L (21-32); CHLORIDE 99 MMOL/L (98-107); CREATININE SERUM 0.87 MG/DL (0.60-1.30); GFR ESTIMATED > 60; POTASSIUM 3.3 MMOL/L (3.6-5.0); SODIUM 139 MMOL/L (135-145)
[2019-05-26] MEDS ORDERED: CATHETER FLUSH 10 ML SYR IV PRN (22:30)
[2019-05-26] MEDS ORDERED: HOLD METFORMIN - RECEIVED CONTRAST 20 ML VIAL IV SCH (22:30)
[2019-05-26] MEDS ORDERED: IOHEXOL 350 MG/ML 100 ML (OMNIPAQUE 350) VIAL IV ONE (22:30)
[2019-05-26] MEDS ORDERED: NS 100 ML (IVPB) BAG IV ONE (22:30)
[2019-05-26 22:31] LABS: ALANINE AMINOTRANSFERASE 17 U/L (0-55); ALBUMIN 4.2 GM/DL (3.2-4.5); ALKALINE PHOSPHATASE 104 U/L (40-136); BILIRUBIN,TOTAL 0.3 MG/DL (0.1-1.0); CALCIUM 9.7 MG/DL (8.5-10.1); GLUCOSE 99 MG/DL (70-105); TOTAL PROTEIN 7.1 GM/DL (6.4-8.2)
[2019-05-26 22:41] LABS: BAND NEUTROPHILS 1 %; BASOPHILS % (MANUAL) 0 %; EOSINOPHILS % (MANUAL) 4 %; LYMPHOCYTES % (MANUAL) 37 %; MONOCYTES % (MANUAL) 6 %; NEUTROPHILS % (MANUAL) 52 %; RBC MORPH NORMAL
[2019-05-26] MEDS ORDERED: cefTRIAXone FOR IV USE 1,000 MG in WATER (STERILE) FOR INJECTION 10 ML IV STA (23:13)
[2019-05-26] MEDS ORDERED: LIDOCAINE 1% INJ 20 ML 20 ML VIAL INJ STA (23:23)
[2019-05-26] MEDS ORDERED: CEPH500T PO (23:49)
[2019-05-27] MEDS ORDERED: RX-ACETAMINOPHEN/CODEINE TAB PPK #4 ONE (00:28)
[2019-05-27] MEDS ORDERED: RX-ACETAMINOPHEN/CODEINE TAB PPK #4 PO PRN (00:30)
[2019-05-27] MEDS ORDERED: RX-HYDROCODONE/APAP 5/325 MG #4 TAB PK PO PRN (00:30)
[2019-05-27 00:36] VITALS: BP 157/108
--- NOTE | 2019-05-27 06:10 | Diagnostic Imaging Report ---
PROCEDURE: CT pelvis with contrast. TECHNIQUE: Oral and intravenous contrast were administered with pelvic CT performed. Auto Exposure Controls were utilized during the CT exam to meet ALARA standards for radiation dose reduction. INDICATION: Evaluate for abscess in the gluteal fold. COMPARISON: 12/30/2018. FINDINGS: A small circumscribed fluid collection is seen in the left gluteal fold measuring approximately 2.0 x 1.0 cm. There are surrounding inflammatory changes. No evidence of fistula formation. No other soft tissue abnormalities are visualized in the pelvis. Included views of the intra-abdominal and intrapelvic contents demonstrate no acute abnormalities. The included osseous structures demonstrate no acute abnormalities. IMPRESSION: 1. Small circumscribed fluid collection in the left gluteal fold with surrounding inflammatory changes, most likely representing superficial abscess. No evidence of fistula formation or connection to the bowel. Agree with overnight report. Dictated by: Dictated on workstation # [id number]
== END 2019-05-27 00:36 | disposition home or self-care (01) ==
LOC: EDUNIT# 20:47 → ER FS 20:49
DX: L02.31 Cutaneous abscess of buttock (principal); L03.317 Cellulitis of buttock; I10 Essential (primary) hypertension; F41.9 Anxiety disorder, unspecified; F39 Unspecified mood [affective] disorder; Z88.7 Allergy status to serum and vaccine
CPT/HCPCS: 36415; 72193; 80053; 83605; 85007; 85027; 87070; 87077; 87205

== ENCOUNTER 2020-02-18 18:52 | Observation (INO) | payer SELFPAY ==
[~2020-02-18] VITALS: Ht 182.8 cm; Wt 168.4 kg
[~2020-02-18 18:52] MED LIST changes: -CATHETER FLUSH 10 ML SYR IV PRN; -HOLD METFORMIN - RECEIVED CONTRAST 20 ML VIAL IV SCH; -HYDR-3817 PO; -IOHEXOL 350 MG/ML 100 ML (OMNIPAQUE 350) VIAL IV ONE; -NS 100 ML (IVPB) BAG IV ONE
[2020-02-18] MEDS ORDERED: LACTATED RINGERS 1,000 ML IV ONE (18:57)
[2020-02-18] MEDS ORDERED: fentaNYL INJECTION 100 MCG/2 ML AMP IVP ONE (19:00)
--- NOTE | 2020-02-18 19:04 | ED Abdominal Pain ---
General Stated Complaint: ABDOMINAL PAIN Source of Information: Patient Exam Limitations: No Limitations History of Present Illness Date Seen by Provider: Feb 18, 2020 Time Seen by Provider: 18:59 Initial Comments To ER with acute appendicitis. He had an outpatient CT scan done today at [place] because of some abdominal pain. He believes this to be secondary to constipation as he had not had a bowel movement for 2 days. He vomited 4 times this morning, hasn't eaten anything since this morning. He reports a "discomfort" in the periumbilical region. Previous abdominal surgeries include cholecystectomy and he subsequently developed a ventral hernia, he would also like to ask the surgeon about repairing this hernia if possible when he does the appendectomy. Timing/Duration: 1-2 Days Severity/Quality: Moderate Location: Periumbilical Radiation: No Radiation Activities at Onset: None Associated Symptoms: Denies Symptoms Allergies and Home Medications Allergies Coded Allergies: mcfarlane (Verified Allergy, Severe, Swelling, 07/04/18) Influenza Virus Vaccines (Unverified Allergy, Unknown, 12/30/18) Uncoded Allergies: MUSHROOMS (Allergy, Severe, Swelling, 07/04/18) Home Medications Cephalexin 500 Mg Tablet, 500 MG PO QID Prescribed by: STEPHAN CRAVEN on 05/26/19 2349 Hydrocodone Bit/Acetaminophen 1 Tab Tab, 1 TAB PO Q6H PRN for PAIN-MODERATE Prescribed by: SUZANNE NICOLE on 12/30/18 1514 Ibuprofen 200 Mg Tablet, 1,000 MG PO 1200, (Reported) TAKES 5 (200MG) TABLETS Lisinopril/Hydrochlorothiazide 1 Each Tablet, 1 TAB PO DAILY, (Reported) Ondansetron 4 Mg Tab.rapdis, 4 MG PO Q6H PRN for NAUSEA/VOMITING Prescribed by: STEPHAN CRAVEN on 12/31/18 0015 Patient Home Medication List Home Medication List Reviewed: Yes Review of Systems Review of Systems Constitutional: see HPI EENTM: No Symptoms Reported Respiratory: No Symptoms Reported Cardiovascular: No Symptoms Reported Gastrointestinal: See HPI, Abdominal Pain, Constipated, Nausea Genitourinary: No Symptoms Reported Musculoskeletal: no symptoms reported Skin: no symptoms reported Psychiatric/Neurological: No Symptoms Reported Endocrine: No Symptoms Reported Past Gajwtxd-Iqrzfy-Vzzxzx Hx Patient Social History Type Used: Cigarettes 2nd Hand Smoke Exposure: No Recent Foreign Travel: No Contact w/Someone Who Travel: No Recent Hopitalizations: No Immunizations Up To Date Tetanus Booster (TDap): Unknown Seasonal Allergies Seasonal Allergies: No Past Medical History Surgeries: Yes Gallbladder Respiratory: No Cardiac: Yes Hypertension Neurological: No Genitourinary: No Gastrointestinal: No Musculoskeletal: No Endocrine: No HEENT: Yes (Dental Caries) Hearing Impairment: Denies Cancer: No Psychosocial: Yes (Mood Disorder) Anxiety Integumentary: No Adverse Reaction/Blood Tranf: No Family Medical History Stroke, Other Conditions/Hx Physical Exam Vital Signs Capillary Refill : Height/Weight/BMI Height: 5'10.00" Weight: 310lbs. 9.0oz. 140.640430ay; 49.00 BMI Method:Stated General Appearance: WD/WN, no apparent distress, obese HEENT: PERRL/EOMI, normal ENT inspection Respiratory: no respiratory distress, no accessory muscle use Gastrointestinal: normal bowel sounds, soft, tenderness (periumbilical), other (HABITUS makes evaluation of the ventral hernia difficult but this fat- containing hernia is easily seen on CT.) Extremities: normal range of motion, non-tender Neurologic/Psychiatric: alert, normal mood/affect, oriented x 3 Skin: normal color, warm/dry Departure Communication (Admissions) Time/Spoke to Admitting Phy: 19:[address] DIAL, we'll admit, tentatively planned for laparoscopic appendectomy tomorrow morning at 10:30 AM. IV fluids pain and nausea control and antibiotics in the meantime. Impression Primary Impression: Appendicitis Qualified Codes: K35.30 - Acute appendicitis with localized peritonitis, without perforation or gangrene Disposition: ADMITTED INPATIENT Condition: Stable Admissions Decision to Admit Reason: Admit from ER (General) Decision to Admit/Date: Feb 18, 2020 Time/Decision to Admit Time: 19:02 Departure-Patient Inst. Referrals: [facility]/ (PCP) Primary Care Physician VLADISLAV ARGUETA APRN (Family) Primary Care Physician LELE TRINH APRN Feb 18, 2020 19:04
[2020-02-18 19:13] LABS: BASOPHILS # (AUTO) 0.1 10^3/uL (0.0-0.1); BASOPHILS % (AUTO) 0 % (0-10); EOSINOPHILS # (AUTO) 0.3 10^3/uL (0.0-0.3); EOSINOPHILS % (AUTO) 1 % (0-10); HEMATOCRIT 45 % (40-54); HEMOGLOBIN 15.5 g/dL (13.3-17.7); LYMPHOCYTES # (AUTO) 5.3 10^3/uL (1.0-4.0); LYMPHOCYTES % (AUTO) 22 % (12-44); MEAN CORPUSCULAR HEMOGLOBIN 31 pg (25-34); MEAN CORPUSCULAR HGB CONC 35 g/dL (32-36); MEAN CORPUSCULAR VOLUME 89 fL (80-99); MEAN PLATELET VOLUME 9.8 fL (9.0-12.2); MONOCYTES # (AUTO) 1.5 10^3/uL (0.0-1.0); MONOCYTES % (AUTO) 6 % (0-12); NEUTROPHILS # (AUTO) 16.3 10^3/uL (1.8-7.8); NEUTROPHILS % (AUTO) 69 % (42-75); PLATELET COUNT 415 10^3/uL (130-400); WHITE BLOOD COUNT 23.7 10^3/uL (4.3-11.0)
[2020-02-18 19:20] LABS: ALBUMIN 4.4 GM/DL (3.2-4.5); CHLORIDE 102 MMOL/L (98-107); POTASSIUM 3.3 MMOL/L (3.6-5.0); SODIUM 138 MMOL/L (135-145)
[2020-02-18 19:22] LABS: CALCIUM 9.2 MG/DL (8.5-10.1); INR 0.9 (0.8-1.4)
[2020-02-18 19:23] LABS: GLUCOSE 103 MG/DL (70-105); TOTAL PROTEIN 7.4 GM/DL (6.4-8.2)
[2020-02-18 19:24] LABS: CARBON DIOXIDE 23 MMOL/L (21-32)
[2020-02-18 19:25] LABS: BILIRUBIN,TOTAL 0.5 MG/DL (0.1-1.0)
[2020-02-18 19:26] LABS: ALKALINE PHOSPHATASE 98 U/L (40-136); CREATININE SERUM 0.82 MG/DL (0.60-1.30); GFR ESTIMATED > 60
[2020-02-18 19:27] LABS: BUN/CREATININE RATIO 10
[2020-02-18 19:29] LABS: ALANINE AMINOTRANSFERASE 28 U/L (0-55)
--- NOTE | 2020-02-18 19:34 | Progress Note-Pre Operative ---
Pre-Operative Progress Note H&P Reviewed The H&P was reviewed, patient examined and no changes noted. Date Seen by Provider: Feb 18, 2020 Time Seen by Provider: 19:30 Date H&P Reviewed: Feb 18, 2020 Time H&P Reviewed: 19:30 Pre-Operative Diagnosis: non-complicated acute appendictis, ventral abd inc hernia DANG DIAL MD Feb 18, 2020 19:34
[2020-02-18] MEDS ORDERED: HYDR-3817 PO (19:40)
--- NOTE | 2020-02-18 19:40 | Discharge Inst-Surgical ---
D/C Lap Instructions-JAYRO New, Converted, or Re-Newed RX: RX on Chart Follow Up Appt in 2 weeks Activity as tolerated No driving for 24 hours No driving while on pain medications Incentive Spirometry use every 2 hours while awake Regular Diet Symptoms to Report: Fever over 101 degree F, Nausea/Vomiting Infection Signs and Symptoms to report: Increased redness, Foul odor of wound, Increased drainage Bathing instructions: May shower Operative Area Clean/Dry; Keep incision clean/dry If any problems/questions: Contact your physician or go to Emergency Room DANG DIAL MD Feb 18, 2020 19:40
[2020-02-18 19:43] VITALS: BP 137/71
--- NOTE | 2020-02-18 19:49 | NUR ---
MARGARITO MIGUEL admitted to room 410-1, with an admitting diagnosis of Acute Appendicitis , on 02/18/20 from ED via , accompanied by STAFF.MARGARITO MIGUEL introduced to surroundings, call light, bed controls, phone, TV, temperature control, lights, meal times, smoking policy, visitor policy, side rail policy, bathrooms and showers. Patient Rights given to patient in the handbook.MARGARITO MIGUEL verbalizes understanding that [facility] is not responsible for the loss or damage to any personal effects or valuables that are kept in the patients posession during their hospitalization.
--- NOTE | 2020-02-18 19:55 | HISTORY AND PHYSICAL ---
DATE OF SERVICE: ATTENDING [employer] SALES REPRESENTATIVE: Uyen Lorenzo APRN. HISTORY OF PRESENT ILLNESS: The patient is a 29-year-old male who was transferred from [place] [facility]. He presented with a 2-day history of pain as well as decreased appetite. He states that the discomfort started in the periumbilical region; however, became more localized to the right lower abdominal quadrant. He also does have a symptomatic ventral abdominal incisional hernia after a laparoscopic cholecystectomy that was done approximately two years ago. CT scan was performed, which did show a noncomplicated appendicitis. He does not report any fever nor chills. PAST MEDICAL HISTORY: Hypertension, sleep apnea. PAST SURGICAL HISTORY: Laparoscopic cholecystectomy, anxiety. SOCIAL HISTORY: Positive smoke 10 pack years. Negative alcohol. FAMILY HISTORY: Noncontributory. VITAL SIGNS: Temperature 36.8, blood pressure 132/91, pulse 88, respirations 20, pulse ox 97% on room air. REVIEW OF SYSTEMS: Well-nourished male in no acute distress. He is not experiencing any shortness of breath or difficulty breathing. No chest pain, palpitations, diaphoresis. Loss of appetite. No nausea or vomiting. No hematemesis or coffee ground emesis. He has not had a bowel movement in the past two days. No known red blood per rectum nor any dark tarry stools. No fever, chills, no recent inadvertent weight loss. All other review of systems negative. PHYSICAL EXAMINATION: CHEST: Clear. Good breath sounds bilaterally. HEART: Regular, no murmurs. EXTREMITIES: No lower extremity edema, negative Homans sign. HEENT: No scleral icterus. NECK: No cervical lymphadenopathy. ABDOMEN: Soft, nondistended. There is pain upon palpation of the right lower abdominal quadrant with voluntary guarding, no rebound. He also has a supraumbilical ventral abdominal incisional hernia, which is tender to palpation; however, reducible. SKIN: Warm, dry. ASSESSMENT AND PLAN: A 29-year-old male with noncomplicated acute appendicitis as well as a symptomatic reducible ventral abdominal incisional hernia. We will proceed with a diagnostic laparoscopy, appendectomy as well as a ventral abdominal incisional hernia repair. Job ID: [id number] DocumentID: [id number] Dictated Date: 02/18/2020 19:39:53 Assistant Date: 02/18/2020 19:54:56 Dictated By: DANG DIAL MD
[2020-02-18 20:00] VITALS: BP 137/71
[2020-02-18 20:00] LABS: EOSINOPHILS % (MANUAL) 1 %; LYMPHOCYTES % (MANUAL) 25 %; MONOCYTES % (MANUAL) 5 %; NEUTROPHILS % (MANUAL) 69 %; RBC MORPH NORMAL
[2020-02-18] MEDS ORDERED: ONDANSETRON 4 MG/2 ML (SDV) Z0FRAN IVP PRN (20:00)
[2020-02-18] MEDS ORDERED: PIPERACILLIN/TAZO 4.5 GM/NS 100 ML IV ONE ×2 (20:00)
[2020-02-18] MEDS: LACTATED RINGERS 1,000 ML IV SCH (21:15)
[2020-02-18] MEDS: fentaNYL INJECTION 100 MCG/2 ML AMP IVP PRN (21:15)
[2020-02-18 23:36] VITALS: BP 105/61
[2020-02-19] VITALS (12 sets, daily range): BP systolic 126–194; BP diastolic 67–105
[2020-02-19] MEDS: fentaNYL INJECTION 100 MCG/2 ML AMP IVP PRN ×4 (00:41→15:57)
[2020-02-19] MEDS: PIPERACILLIN/TAZO 4.5 GM/NS 100 ML IV SCH ×4 (03:38→10:24)
[2020-02-19] MEDS: LACTATED RINGERS 1,000 ML IV SCH ×2 (04:24→14:39)
[2020-02-19 06:20] LABS: BASOPHILS # (AUTO) 0.1 10^3/uL (0.0-0.1); BASOPHILS % (AUTO) 0 % (0-10); EOSINOPHILS # (AUTO) 0.4 10^3/uL (0.0-0.3); EOSINOPHILS % (AUTO) 2 % (0-10); HEMATOCRIT 44 % (40-54); HEMOGLOBIN 14.7 g/dL (13.3-17.7); LYMPHOCYTES # (AUTO) 4.8 10^3/uL (1.0-4.0); LYMPHOCYTES % (AUTO) 27 % (12-44); MEAN CORPUSCULAR HEMOGLOBIN 31 pg (25-34); MEAN CORPUSCULAR HGB CONC 34 g/dL (32-36); MEAN CORPUSCULAR VOLUME 90 fL (80-99); MONOCYTES % (AUTO) 6 % (0-12); NEUTROPHILS # (AUTO) 11.8 10^3/uL (1.8-7.8); NEUTROPHILS % (AUTO) 65 % (42-75); PLATELET COUNT 355 10^3/uL (130-400); WHITE BLOOD COUNT 18.1 10^3/uL (4.3-11.0)
[2020-02-19 06:27] LABS: CHLORIDE 102 MMOL/L (98-107); POTASSIUM 3.2 MMOL/L (3.6-5.0); SODIUM 139 MMOL/L (135-145)
[2020-02-19 06:28] LABS: CALCIUM 8.7 MG/DL (8.5-10.1)
[2020-02-19 06:29] LABS: GLUCOSE 98 MG/DL (70-105); PROTHROMBIN TIME PATIENT 13.3 SEC (12.2-14.7); TOTAL PROTEIN 6.6 GM/DL (6.4-8.2)
[2020-02-19 06:30] LABS: CARBON DIOXIDE 26 MMOL/L (21-32)
[2020-02-19 06:31] LABS: BILIRUBIN,TOTAL 0.9 MG/DL (0.1-1.0)
[2020-02-19 06:33] LABS: ALKALINE PHOSPHATASE 91 U/L (40-136); CREATININE SERUM 0.88 MG/DL (0.60-1.30); GFR ESTIMATED > 60
[2020-02-19 06:34] LABS: BUN/CREATININE RATIO 8
[2020-02-19 06:36] LABS: ALANINE AMINOTRANSFERASE 26 U/L (0-55)
[2020-02-19] MEDS ORDERED: BUP/EPI 0.5% 1:200,000 (SENSORCAINE) 30 ML VIAL ONE ×2 (09:54→11:54)
[2020-02-19] MEDS ORDERED: MIDAZOLAM 2 MG/2 ML (VERSED) VIAL ONE (10:19)
[2020-02-19] MEDS ORDERED: fentaNYL INJECTION 100 MCG/2 ML AMP ONE (10:19)
[2020-02-19] MEDS ORDERED: proPOfol 200 MG/20 ML (DIPRIVAN) VIAL IV ONE ×2 (10:28→13:16)
[2020-02-19] MEDS ORDERED: LIDOCAINE PF 2% 5 ML (XYLOCAINE) VIAL ONE (10:30)
[2020-02-19] MEDS ORDERED: ROCURONIUM 10 MG/ML 5 ML SYRINGE IV ONE ×2 (10:30→11:58)
[2020-02-19] MEDS ORDERED: ONDANSETRON 4 MG/2 ML (SDV) Z0FRAN ONE (10:30)
[2020-02-19] MEDS ORDERED: SEVOFLURANE (ULTANE) 15 ML INHAL SOLN ONE ×7 (10:30→12:25)
[2020-02-19] MEDS ORDERED: NEOSTIGMINE 3 MG/3 ML VIAL ONE (10:31)
[2020-02-19] MEDS ORDERED: GLYCOPYRROLATE 0.2 MG/ML (ROBINUL) 2 ML VIAL ONE ×2 (10:31→11:42)
[2020-02-19] MEDS: LACTATED RINGERS 1,000 ML IV PRN ×3 (10:43→12:55)
[2020-02-19] MEDS ORDERED: MEPERIDINE (DEMEROL) INJ 50 MG/ML ONE (10:47)
[2020-02-19] MEDS ORDERED: morphine INJ 10 MG/ML 1ML (SYR OR VIAL) ONE ×2 (10:48→11:42)
[2020-02-19] MEDS ORDERED: ONDANSETRON 4 MG/2 ML (SDV) Z0FRAN IVP PRN (11:15)
[2020-02-19] MEDS ORDERED: fentaNYL INJECTION 100 MCG/2 ML AMP IVP ONE (11:15)
[2020-02-19] MEDS ORDERED: MEPERIDINE (DEMEROL) INJ 50 MG/ML IVP ONE (11:15)
[2020-02-19] MEDS ORDERED: morphine INJ 10 MG/ML 1ML (SYR OR VIAL) IVP ONE (11:15)
--- NOTE | 2020-02-19 12:32 | Progress Note-Post Operative ---
Post-Operative Progess Note Surgeon (s)/Jail Officer (s) Surgeon DANG DIAL MD Jail Officer: jarod andre APRN Pre-Operative Diagnosis non-complicated acute appendictis, ventral abd inc hernia Post-Operative Diagnosis same Procedure & Operative Findings Date of Procedure 02/19/20 Procedure Performed/Findings laparoscopic appendectomy and open ventral abd incisional hernia repair with mesh. Anesthesia Type get Estimated Blood Loss Estimated blood loss (mL): minimal Specimens/Packing Specimens Removed appendix, hernia sac DANG DIAL MD Feb 19, 2020 12:32
[2020-02-19] MEDS ORDERED: SUGAMMADEX 500 MG/5 ML VIAL (BRIDION) IV ONE (13:17)
[2020-02-19] MEDS ORDERED: RT-ALBUTEROL INHALER HFA (VENTOLIN HFA) 18 GM IH ONE (13:18)
[2020-02-19] MEDS ORDERED: LABETALOL HCL 20 MG/4 ML VIAL ONE (13:43)
[2020-02-19] MEDS ORDERED: LABETALOL HCL 100 MG/20 ML VIAL IV ONE (14:00)
--- NOTE | 2020-02-19 14:10 | NUR ---
Patient back into this RNs care from his lap appy and hernia repair. Patient alert and oriented x4. Placed on 3L NC to maintain adequate oxygen saturation.. Report received from day surg. nurse Liza
--- NOTE | 2020-02-19 17:19 | NUR ---
Contacted [employer] and filled out voucher paper with patient. Cab will be here in 10-15 minutes. Discharge instructions and script provided to patient at this time.
--- NOTE | 2020-02-19 17:25 | NUR ---
MIGUEL,MARGARITO Johan demonstrates understanding of discharge instructions and accurately returns instructions upon questioning. Copy of Post-Discharge Instructions and Medication Discharge Instructions given to patient. MIGUELMARGARITO Johan is able to manage continuing needs after discharge. Patients belongings returned to patient. Skin dry and intact; no breakdown noted. Patient discharged from [facility] [place] on 02/19/20 at 1725. MARGARITO MIGUEL left floor via wheelchair, accompanied by KANIKA Paulino.
--- NOTE | 2020-02-19 17:31 | Anesthesia-General Post-Op ---
General Patient Condition Mental Status/LOC: Same as Preop Cardiovascular: Satisfactory Nausea/Vomiting: Absent Respiratory: Satisfactory Pain: Controlled Complications: Absent Post Op Complications Complications None Follow Up Care/Instructions Patient Instructions None needed. Anesthesia/Patient Condition Patient Condition Patient is doing well, no complaints, stable vital signs, no apparent adverse anesthesia problems. No complications reported per nursing. KUMAR HADDAD CRNA Feb 19, 2020 17:31
--- NOTE | 2020-02-19 19:09 | OPERATIVE REPORT ---
DATE OF SERVICE: 02/19/2020 ATTENDING BLASTING ENTRY SPECIALIST: Uyen Lorenzo APRN PREOPERATIVE DIAGNOSES: Acute appendicitis, symptomatic reducible ventral abdominal incisional hernia. POSTOPERATIVE DIAGNOSES: Acute appendicitis, symptomatic reducible ventral abdominal incisional hernia with no appendiceal perforation or contamination. PROCEDURE: Laparoscopic appendectomy and open ventral abdominal incisional hernia repair with mesh. SURGEON: Geremias Ramirez MD PHOTOGRAPHIC EQUIPMENT TECHNICIAN: SKIP Gaytan. ANESTHESIA: General endotracheal. ESTIMATED BLOOD LOSS: Minimal. FINDINGS: Acute appendicitis, symptomatic reducible ventral abdominal incisional hernia with no appendiceal perforation or contamination. DISPOSITION: The patient tolerated the procedure well. INDICATIONS: The patient is a 29-year-old male who was transferred from [facility] with a 2-day history of abdominal pain, which initially started periumbilically, however, became more localized towards the right lower abdominal quadrant. He also has a symptomatic ventral abdominal incisional hernia, which has grown larger in size and become more painful. CT scan was performed, which did show a noncomplicated appendicitis. DESCRIPTION OF PROCEDURE: The patient was brought to the operating room, laid supine on the table. After adequate IV pain and sedative medications and general endotracheal intubation, the abdomen was prepped and draped in standard surgical fashion. A 0.5% Marcaine with epinephrine was then used to anesthetize overlying skin in the left upper abdominal quadrant and a transverse skin incision made using a 15 blade. An 0 silk suture was applied to the medial aspect incision for retraction and a Veress needle inserted with a low opening pressure of 0 mmHg. The abdomen was then insufflated to 15 mmHg pressure. The Veress needle removed and a 5 mm XL trocar placed followed by a 5 mm 45-degree angle laparoscope visualizing the peritoneal cavity. A 4-quadrant abdominal exploration was performed. There was a significant size incisional hernia with omentum within the hernia sac. There was an inflamed edematous appendix with no purulence or perforation identified. Under direct visualization, we then proceeded to place an infraumbilical 10 mm port after the skin and peritoneal lining were anesthetized using 0.25% Marcaine with epinephrine and a transverse skin incision made using a 15 blade. In a similar manner, a suprapubic 5 mm port was placed. The patient was then placed in Trendelenburg position and the appendix was retracted towards the anterior abdominal wall. A window was then created between the base of the appendix and the mesoappendix using a [place] dissector. The appendix was then stapled and transected with a HOWARD 45 mm stapler with a 2.5 mm thickness load. The mesoappendix was then stapled and transected with a 2.0 mm thickness reload with visualization of good hemostasis. The appendix was removed through the 10 mm port site using an EndoCatch bag. We then proceeded with open ventral abdominal incisional hernia repair due to the patient's body habitus, which is morbidly obese. The previous midline incision was anesthetized using 0.5% Marcaine with epinephrine and a vertical skin incision made using a 15 blade. The hernia sac was then completely dissected out using blunt dissection as well as electrocautery. We proceeded with the dissection until the fascia was identified. The hernia sac was then opened using cautery and completely excised. The omentum was then reduced back into the abdomen. An 8 cm coated polypropylene mesh was then placed in the defect and sutured transfascially in a concentric manner using 0 Prolene sutures. Good hemostasis was observed The subcutaneous tissue was then reapproximated using interrupted 3-0 Vicryl sutures. All skin incisions were closed using 4-0 Monocryl running subcuticular suture. Wounds were then cleaned and covered with Dermabond. In the area of the hernia. A tonsil sponges followed by gauze, followed by a large Op-Site and abdominal binder were placed. The patient tolerated the procedure well. He will be instructed to do no heavy lifting or exertion for the next two weeks and to keep the dressing on for 5 days and then remove. He will also be instructed to wear his abdominal binder at all times for the next two weeks as well. Job ID: [id number] DocumentID: [id number] Dictated Date: 02/19/2020 12:39:06 Packaging Tech Date: 02/19/2020 19:08:20 Dictated By: MD JOJO GRANADOS
== END 2020-02-19 17:25 | disposition home or self-care (01) ==
LOC: EDUNIT# 18:52 → ER 18:53 → 4TH 18:55
PROVIDERS: ADMIT Surgery; ATTEND Surgery
DX: K35.80 Unspecified acute appendicitis (principal); K43.2 Incisional hernia without obstruction or gangrene; E66.01 Morbid (severe) obesity due to excess calories; I10 Essential (primary) hypertension; G47.30 Sleep apnea, unspecified; F17.210 Nicotine dependence, cigarettes, uncomplicated; F41.9 Anxiety disorder, unspecified; F39 Unspecified mood [affective] disorder; Z79.899 Other long term (current) drug therapy; Z20.828 Contact with and (suspected) exposure to other viral communicable diseases; Z68.43 Body mass index [BMI] 50.0-59.9, adult
CPT/HCPCS: 49560; 49568; 80053 ×2; 82962; 85007; 85025; 85027; 85610 ×2; 85730; 86850; 86900; 86901; 88302; 88304; 96374; 99284; C1781; U0002; 36415; 87635

== ENCOUNTER → 2020-02-18 | Outpatient (CLI) | payer SELFPAY ==
[~2020-02-18] MED LIST changes: +CATHETER FLUSH 10 ML SYR IV PRN; +CEPH500T PO; +HOLD METFORMIN - RECEIVED CONTRAST 20 ML VIAL IV SCH; +HYDR-3817 PO; +IOHEXOL 350 MG/ML 100 ML (OMNIPAQUE 350) VIAL IV ONE; +NS 100 ML (IVPB) BAG IV ONE
--- NOTE | 2020-02-18 17:01 | Diagnostic Imaging Report ---
EXAMINATION: CT Abdomen and Pelvis with intravenous contrast. TECHNIQUE: Multiple contiguous axial images were obtained through the abdomen and pelvis after the uneventful administration of intravenous contrast. All CT scans use one or more of the following dose optimizing techniques: automated exposure control, MA and/or KvP adjustment based on a patient size and exam type, or iterative reconstruction. HISTORY: CONSTIPATION COMPARISON: CT abdomen/pelvis 12/22/2018 FINDINGS: Lung bases: The lung bases are clear. Solid organs: The liver is normal without focal lesion. The gallbladder is surgically absent. There is no biliary ductal dilation. Pancreas is normal. Spleen is normal. Adrenal glands are normal. The kidneys are normal without hydronephrosis. Bowel: The stomach and small bowel are normal without obstruction. The colon is unremarkable. The appendix is mildly dilated up to 1.1 cm with mild inflammatory stranding. No periappendiceal fluid collection. Peritoneum: There is no intraperitoneal free fluid or free air. No suspicious lymphadenopathy. Vasculature: Normal without aneurysm. Musculoskeletal: There is a fat-containing periumbilical hernia. No suspicious osseous lesion or compression fracture. Pelvis: The prostate gland is normal. The urinary bladder is normal. IMPRESSION: Acute appendicitis without findings of intraperitoneal free air or abscess. Dictated by: Dictated on workstation # [id number]
--- NOTE | 2020-02-18 17:35 | NUR ---
ATTEMPT WAS MADE BY THIS TECHNOLOGIST TO CONTACT PROVIDER ABOUT THE PATIENTS STATS RESULTS. WAS INFORMED THAT THE PROVIDER HAS ALREADY GONE HOME FOR THE DAY. I WAS PROVIDER A PHONE NUMBER FOR THE DIRECTOR NON PROFIT PROVIDER TO GIVE RESULTS TO THEM. NO ONE ANSWERED PHONE CALL. [phone] WAS THE PHONE NUMBER PROVIDED. HR
== END ==
LOC: RAD FS 15:51
PROVIDERS: ATTEND Nurse Practitioner Family
DX: K59.09 Other constipation (principal); K35.80 Unspecified acute appendicitis; R11.14 Bilious vomiting
CPT/HCPCS: 74177

== ENCOUNTER 2020-04-30 19:05 | Emergency (ER) | payer OTHER ==
[~2020-04-30] VITALS: Ht 175.3 cm; Wt 167.2 kg
[~2020-04-30 19:05] MED LIST changes: +HYDR-3817 PO
[2020-04-30 19:16] VITALS: BP 172/86
--- NOTE | 2020-04-30 19:41 | Diagnostic Imaging Report ---
EXAMINATION: Right hand 3 views. HISTORY: Trauma. COMPARISON: None available. FINDINGS: Alignment is normal. No fracture is seen. Joint spaces are normal. IMPRESSION: No fracture. Dictated by: Dictated on workstation # [id number]
--- NOTE | 2020-04-30 19:43 | ED Upper Extremity ---
General Chief Complaint: Upper Extremity Stated Complaint: RIGHT HAND INJURY Nursing Triage Note: pt tripped by dog and fell to ground injuring right hand. ice pack given Nursing Sepsis Screen: No Definite Risk Source: patient History of Present Illness Date Seen by Provider: Apr 30, 2020 Time Seen by Provider: 19:10 Initial Comments Patient is a right-handed male who presents with right hand pain after tripping and falling over dog's leash and landing on the back of right hand. Injury occurred just prior to the arrival. Patient reports pain so pain tenderness l ocated over the ulnar aspect of his mid hand. Reports pain with range of motion. No deformity or bruising noted. Injury occurred just prior to ED arrival. This is an isolated injury. Ice pack applied on ED arrival Onset: just prior to arrival Pain/Injury Location: right hand Method of Injury: fell Modifying Factors: Improves With Cold Therapy Allergies and Home Medications Allergies Coded Allergies: mcfarlane (Verified Allergy, Severe, Swelling, 07/04/18) Influenza Virus Vaccines (Unverified Allergy, Unknown, 12/30/18) Uncoded Allergies: MUSHROOMS (Allergy, Severe, Swelling, 07/04/18) Home Medications Cephalexin 500 Mg Tablet, 500 MG PO QID Prescribed by: STEPHAN CRAVEN on 05/26/19 2349 Hydrocodone Bit/Acetaminophen 1 Tab Tab, 1 TAB PO Q6H PRN for PAIN-MODERATE Prescribed by: SUZANNE NICOLE on 12/30/18 1514 Hydrocodone/Acetaminophen 1 Each Tablet, 1 EACH PO Q4H Prescribed by: DANG DIAL on 02/18/20 1940 Ibuprofen 200 Mg Tablet, 1,000 MG PO 1200, (Reported) TAKES 5 (200MG) TABLETS Lisinopril/Hydrochlorothiazide 1 Each Tablet, 1 TAB PO DAILY, (Reported) Ondansetron 4 Mg Tab.rapdis, 4 MG PO Q6H PRN for NAUSEA/VOMITING Prescribed by: STEPHAN CRAVEN on 12/31/18 0015 Patient Home Medication List Home Medication List Reviewed: Yes Review of Systems Constitutional: no symptoms reported EENTM: no symptoms reported Respiratory: no symptoms reported Cardiovascular: no symptoms reported Gastrointestinal: no symptoms reported Genitourinary: no symptoms reported Musculoskeletal: see HPI Skin: no symptoms reported Psychiatric/Neurological: No Symptoms Reported All Other Systems Reviewed Negative Unless Noted: Yes Past Qhupmur-Lqohmy-Qkvuwc Hx Past Med/Social Hx: Reviewed Nursing Past Med/Soc Hx Patient Social History Alcohol Use: Denies Use Recreational Drug Use: No Type Used: Cigarettes 2nd Hand Smoke Exposure: No Recent Foreign Travel: No Contact w/Someone Who Travel: No Recent Infectious Disease Expo: No Recent Hopitalizations: No Physical Abuse: No Sexual Abuse: No Mistreated: No Fear: No Immunizations Up To Date Tetanus Booster (TDap): Unknown Seasonal Allergies Seasonal Allergies: No Past Medical History Surgeries: Yes Gallbladder Respiratory: No Currently Using CPAP: No Currently Using BIPAP: No Cardiac: Yes Hypertension Neurological: No Genitourinary: No Gastrointestinal: No Musculoskeletal: No Endocrine: No HEENT: Yes (Dental Caries) Hearing Impairment: Denies Cancer: No Psychosocial: Yes (Mood Disorder) Anxiety Integumentary: No Adverse Reaction/Blood Tranf: No Family Medical History Hypertension 19 MOTHER Thyroid disease 19 MOTHER Stroke, Other Conditions/Hx Physical Exam Vital Signs Vital Signs - First Documented 04/30/20 19:16 Temp 36.9 Pulse 105 Resp 16 B/P (MAP) 172/86 (114) Pulse Ox 98 O2 Delivery Room Air Capillary Refill : Less Than 3 Seconds Height, Weight, BMI Height: 5'10.00" Weight: 310lbs. 9.0oz. [id number]; 54.00 BMI Method:Stated General Appearance: no apparent distress Hand: normal ROM, Right, soft tissue tenderness, swelling Neurologic/Tendon: normal sensation, normal motor functions Neurologic/Psychiatric: no motor/sensory deficits Skin: normal color Progress/Results/Core Measures Results/Orders My Orders Orders - AR TRAN DO Hand 3 View Right (04/30/20 19:27) Vital Signs/I&O 04/30/20 19:16 Temp 36.9 Pulse 105 Resp 16 B/P (MAP) 172/86 (114) Pulse Ox 98 O2 Delivery Room Air Blood Pressure Mean: 114 Departure Communication (Admissions) X-ray right hand: No obvious displaced FX. Impression Primary Impression: Contusion of hand Disposition: 01 HOME, SELF-CARE Condition: Stable Departure-Patient Inst. Referrals: [facility] (PCP) Primary Care Physician VLADISLAV ARGUETA APRN (Family) Primary Care Physician Patient Instructions: Contusion (DC) Add. Discharge Instructions: No fracture was found on xray. Please take ibuprofen for pain and apply ice to affected area. Wear soheila wrap for comfort. All discharge instructions reviewed with patient and/or family. Voiced understanding. AR TRAN DO Apr 30, 2020 19:43
[2020-04-30] MEDS ORDERED: IBUPROFEN TABLET 200 MG TAB PO ONE (20:00)
== END 2020-04-30 19:56 | disposition home or self-care (01) ==
LOC: EDUNIT# 19:05 → ER FS 19:09
DX: S60.221A Contusion of right hand, initial encounter (principal); I10 Essential (primary) hypertension; Z88.7 Allergy status to serum and vaccine; Z82.49 Family history of ischemic heart disease and other diseases of the circulatory system; W01.0XXA Fall on same level from slipping, tripping and stumbling without subsequent striking against object, initial encounter
CPT/HCPCS: 73130

== ENCOUNTER → 2020-07-13 | Outpatient (CLI) | payer BC, OTHER ==
[~2020-07-13] MED LIST changes: +CATHETER FLUSH 10 ML SYR IV PRN; +HOLD METFORMIN - RECEIVED CONTRAST 20 ML VIAL IV SCH; +IOHEXOL 350 MG/ML 100 ML (OMNIPAQUE 350) VIAL IV ONE; +NS 100 ML (IVPB) BAG IV ONE
--- NOTE | 2020-07-13 09:55 | Diagnostic Imaging Report ---
CLINICAL INDICATION: Patient with lump on the left collarbone x1 month. Area of concern marked with BB marker. EXAM: Axial CT scan of the neck soft tissue performed with 75 mL of Omnipaque 350 IV contrast. Sagittal and coronal reformatted images are created. Auto Exposure Controls were utilized during the CT exam to meet ALARA standards for radiation dose reduction. COMPARISON: None. FINDINGS: There is a lymph node in the left supraclavicular region near the BB marker which measures 10 mm x 21 mm x 7 mm (AP x Trans x CC). There is small amount of adjacent fat stranding seen near the region as well. There are also prominent lymph nodes involving both sides of the neck with the largest lymph node seen in the right level 2A region measuring 1.7 cm x 2.5 cm. The largest in the left side measures 1.4 cm x 2.2 cm in the left 2A region. There is enlargement of the posterior nasopharyngeal soft tissue, bilateral palatine tonsils and mild prominence of the posterior lingual adenoid soft tissue. The visualized portions of the lower cavity, tongue, sublingual and submandibular regions are unremarkable. Thyroid gland and salivary glands are unremarkable. Visualized upper lung blevins are clear. Cervical spine is unremarkable. Limited visualization of the intracranial structures are unremarkable. IMPRESSION: 1: There is a prominent lymph node in the left supraclavicular region with adjacent fat stranding. This lymph node may be reactive. Follow-up CT scan in 3 months is suggested to evaluate for interval change. 2: There is bilateral neck lymphadenopathy with the largest lymph nodes in the bilateral level 2A regions. These lymph nodes may be reactive, but should also be followed on subsequent imaging. 3: There is enlargement of the posterior nasopharyngeal adenoid soft tissue, bilateral palatine tonsils, and posterior lingual soft tissue. These findings may also be reactive from infectious or inflammatory process. This can also be followed on subsequent imaging. Dictated by: Dictated on workstation # [id number]
== END ==
LOC: RAD FS 08:34
PROVIDERS: ATTEND Nurse Practitioner Family
DX: R59.0 Localized enlarged lymph nodes (principal)
CPT/HCPCS: 70491